=== PATIENT | male | born 1960 | race Caucasian/White ===

== ENCOUNTER 2024-07-08 07:38 | Emergency (ER) | payer OTHER, SELFPAY ==
[2024-07-08 07:43] VITALS: BP 167/97; PULSE 93; TEMP 36.8; O2SAT 98; BMI 29.1
--- NOTE | 2024-07-08 08:00 | XR_ITS ---
The [address] [address] Patient Name: JEFFREY HILLMAN MRN: [id number] date: 1960 Sex: M Assigned Patient Location: ER Current Patient Location: ER Accession/Order Number: [id number] Exam Date: 07/08/2024 07:54 Report Date: 07/08/2024 08:35 At the request of: PAVAN ALVAREZ Procedure: XR humerus RT EXAM: XR humerus RT, XR shoulder RT min 2V HISTORY: fall c/o pain COMPARISON: None. XR/XR humerus RT IMPRESSION: 1. There is a mildly displaced fracture involving the caudal aspect of the body of the scapula. 2. No acute joint malalignment. 3. Mild acromioclavicular and glenohumeral joint osteoarthritis. Electronically authenticated by: MAGNUS DORANTES Date: 07/08/2024 08:35
--- NOTE | 2024-07-08 08:00 | XR_ITS ---
The [address] [address] Patient Name: JEFFREY HILLMAN MRN: [id number] date: 1960 Sex: M Assigned Patient Location: ER Current Patient Location: ER Accession/Order Number: [id number] Exam Date: 07/08/2024 07:54 Report Date: 07/08/2024 08:35 At the request of: PAVAN ALVAREZ Procedure: XR shoulder RT min 2V EXAM: XR humerus RT, XR shoulder RT min 2V HISTORY: fall c/o pain COMPARISON: None. XR/XR shoulder RT min 2V IMPRESSION: 1. There is a mildly displaced fracture involving the caudal aspect of the body of the scapula. 2. No acute joint malalignment. 3. Mild acromioclavicular and glenohumeral joint osteoarthritis. Electronically authenticated by: MAGNUS DORANTES Date: 07/08/2024 08:35
--- NOTE | 2024-07-08 08:29 | CT_ITS ---
The [address] [address] Patient Name: JEFFREY HILLMAN MRN: [id number] date: 1960 Sex: M Assigned Patient Location: ER Current Patient Location: ER Accession/Order Number: [id number] Exam Date: 07/08/2024 08:38 Report Date: 07/08/2024 09:18 At the request of: PAVAN ALVAREZ Procedure: CT chest wo con EXAMINATION: CT chest wo con HISTORY: trauma COMPARISON: No relevant comparison available. TECHNIQUE: Multi-planar CT images were created with IV contrast. Axial, Coronal, and Sagittal images. Dose reduction techniques were achieved by using automated exposure control and/or adjustment of mA and/or kV according to patient size and/or use of iterative reconstruction technique. FINDINGS: LUNGS: 1.5 cm area of groundglass opacity in the right upper lobe possibly a lung contusion. Mild biapical paraseptal emphysema. A few scattered punctate pulmonary nodules, nonspecific PLEURA: No mass, effusion, or pneumothorax. VASCULATURE: No abnormality. HIGINIO: No mass or adenopathy. MEDIASTINUM: No mass or adenopathy. Scattered thyroid nodules CARDIAC: No enlargement or pericardial effusion Coronary arteries: Mild calcifications AORTA: No aortic aneurysm. Mild calcific atherosclerosis CHEST WALL: No mass or axillary adenopathy. BONES: Complex right scapular fracture LIMITED ABDOMEN: Multiple hepatic hypodensities too small to fully characterize. OTHER: Negative. CT/CT chest wo con IMPRESSION: Complex acute right scapular fracture 1.5 cm groundglass opacity in the right upper lobe, possibly a lung contusion. Electronically authenticated by: COLLIN PARK Date: 07/08/2024 09:18
--- NOTE | 2024-07-08 08:29 | CT_ITS ---
The [address] [address] Patient Name: JEFFREY HILLMAN MRN: [id number] date: 1960 Sex: M Assigned Patient Location: ER Current Patient Location: ER Accession/Order Number: [id number] Exam Date: 07/08/2024 08:38 Report Date: 07/08/2024 08:57 At the request of: PAVAN ALVAREZ Procedure: CT cervical spine wo con EXAM: CT cervical spine wo con HISTORY: Fall with back and right shoulder pain, trauma COMPARISON: None. TECHNIQUE: Axial noncontrast CT imaging of the cervical spine was performed with coronal and sagittal reformats. FINDINGS: Alignment: No substantial subluxation. Vertebrae: Vertebral body heights are maintained. No fracture. Craniocervical junction: No focal abnormality. Degenerative changes: Moderate degenerative change of the cervical spine with multilevel moderate disc height loss, sclerotic endplate change with anterior and posterior osteophytic spurring as well as multilevel moderate to advanced uncovertebral and facet arthropathy. Posterior disc osteophyte complexes are present at multiple levels most prominent at C5-C6 with mild canal stenosis. There is advanced left foraminal stenosis at C4-C5 through C6-C7 secondary to eccentric left uncovertebral arthropathy at these levels. No overt substantial canal stenosis. Additional Comments: Paraseptal emphysematous change involving the visualized lung apices. Multinodular thyroid. The largest visible nodule measures approximately 9 mm involving the right thyroid. CT/CT cervical spine wo con IMPRESSION: 1. No acute fracture or malalignment of the cervical spine. 2. Moderate degenerative change of the cervical spine described above. Electronically authenticated by: RASHAD CORNEJO Date: 07/08/2024 08:57
--- NOTE | 2024-07-08 09:31 | ED.GENADUL1 ---
HPI HPI - General Adult General Chief complaint: Extremity Injury, Upper Stated complaint: FALL, BACK AND SHOULDAR PAIN Time Seen by Provider: 07/08/24 07:44 Mode of arrival: walk-in History of Present Illness HPI narrative: Patient presents to ED after a fall. Patient states that 630 this morning he was walking outside and slipped on his steps and landed on his back on the right side. He had pain but got up and continue to do some stuff out in the driveway like salt the steps and things like that. He then came back inside and became diaphoretic and near syncopal. He was having a hard time moving his shoulder and lifting the right arm because of shoulder pain. He complains of some pain into the proximal humerus area and shoulder and slightly in the back below the scapula. He also complains of a little bit of pain in the right cervical paraspinal muscles. He did not hit his head he did not lose consciousness. No nausea vomiting no confusion no neurological deficit. He ambulated into ED. Related Data Previous Rx's ?Medication ?Instructions ?Recorded oxycodone-acetaminophen 5 mg-325 1 tab PO Q6H PRN pain #14 tabs 07/08/24 mg tablet (Percocet) Allergies Allergy/AdvReac Type Severity Reaction Status Date / Time No Known Drug Allergies Allergy Verified 07/08/24 07:43 Opioid HPI Opioid Management Most Recent Opioid Data: Last Pain Scale 5 07/08/24 07:43 07/08/24 Last ED Pain Assessment 07/08/24 07:43 Review of Systems ROS Status of ROS 10 or more systems reviewed and unremarkable except as noted in history and below PFSH PFSH Social History Little interest or pleasure in doing things: not at all Feeling down, depressed, or hopeless: not at all Exam Narrative Exam Narrative: Time Seen: [] Vital Signs: [Per nurse's notes.] General: [Alert] Skin: [Warm, dry, no rash.] Head: [Normocephalic, atraumatic.] Neck: [Supple, trachea midline.] No midline tenderness, mild tenderness to the right paraspinal cervical muscles. Eye: [Pupils are equal, round and reactive to light, extraocular movements are intact, normal conjunctiva.] Ears, nose, mouth and throat: oral mucosa moist. Cardiovascular: [Regular rate and rhythm, no murmur.] Respiratory: [Lungs are clear to auscultation, respirations are non-labored, breath sounds are equal.] Chest wall: [No tenderness, no deformity.] Gastrointestinal: [Soft, nontender, non distended, normal bowel sounds.] MSK: Decreased range of motion at the right shoulder due to pain. Tenderness to palpation around the scapular region. Tenderness to palpation in the shoulder and proximal humerus. 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 Lymphatics: [No lymphadenopathy.] Psychiatric: [Cooperative, appropriate mood & affect.] Neurological: [Alert and oriented to person, place, time, and situation, no focal neurological deficit observed.] Constitutional Vital Signs, click to edit/add: Last Vital Signs Temp 98.2 F 07/08/24 07:43 Pulse 93 H 07/08/24 07:43 Resp 18 07/08/24 07:43 BP 167/97 H 07/08/24 07:43 Pulse Ox 98 07/08/24 07:43 Course Vital Signs Vital signs: Vital Signs Temperature 98.2 F 07/08/24 07:43 Pulse Rate 93 H 07/08/24 07:43 Respiratory Rate 18 07/08/24 07:43 Blood Pressure 167/97 H 07/08/24 07:43 Pulse Oximetry 98 07/08/24 07:43 Temperature 98.2 F 07/08/24 07:43 Pulse Rate 93 H 07/08/24 07:43 Respiratory Rate 18 07/08/24 07:43 Blood Pressure 167/97 H 07/08/24 07:43 Pulse Oximetry 98 07/08/24 07:43 Medical Decision Making MDM Narrative Medical decision making narrative: Shoulder and humerus x-ray ordered by nurse, after my evaluation I added on CT cervical spine and CT chest due to pain with breathing and neck pain. X-ray and CT show a scapular fracture.. I spoke to Dr. Palma and he states as long as his respiratory and pulmonary status are normal then he can most likely be followed up outpatient. I got him an appointment with Dr. Palma at 1130 on Friday. The patient has no shortness of breath no respiratory complaints. No hypoxia. He was given strict instructions to return to the emergency room if any of those things are occurring. He was placed in a sling and given pain medication for home. Follow-up with Dr. Palma on Friday otherwise return to ED if worsening symptoms or any further concerns. Patient and family are comfortable with care plan. Differential Diagnosis Differential Diagnosis: Fracture sprain strain contusion Imaging Data Chest x-ray: Radiologist's impression: ITS Impressions Humerus X-Ray 07/08/24 08:00 IMPRESSION: 1. There is a mildly displaced fracture involving the caudal aspect of the body of the scapula. 2. No acute joint malalignment. 3. Mild acromioclavicular and glenohumeral joint osteoarthritis. Electronically authenticated by: MAGNUS DORANTES Date: 07/08/2024 08:35 Shoulder X-Ray 07/08/24 08:00 IMPRESSION: 1. There is a mildly displaced fracture involving the caudal aspect of the body of the scapula. 2. No acute joint malalignment. 3. Mild acromioclavicular and glenohumeral joint osteoarthritis. Electronically authenticated by: MAGNUS DORANTES Date: 07/08/2024 08:[address] 07/08/24 08:29 IMPRESSION: 1. No acute fracture or malalignment of the cervical spine. 2. Moderate degenerative change of the cervical spine described above. Electronically authenticated by: RASHAD CORNEJO Date: 07/08/2024 08:[address] 07/08/24 08:29 IMPRESSION: Complex acute right scapular fracture 1.5 cm groundglass opacity in the right upper lobe, possibly a lung contusion. Electronically authenticated by: COLLIN PARK Date: 07/08/2024 09:18 Discharge Plan Discharge Chief Complaint: Extremity Injury, Upper Clinical Impression: Closed right scapular fracture Patient Disposition: Home, Self-Care Time of Disposition Decision: 09:49 Condition: Good Mode of Transportation: Private Vehicle Prescriptions / Home Meds: New oxycodone-acetaminophen [Percocet] 5-325 mg tablet 1 tab PO Q6H PRN (Reason: pain) Qty: 14 0RF Print Language: Irish Instructions: Scapular Fracture (ED) Referrals: Uvaldo Yung MD [Primary Care Provider] - 1 week Basilio Palma MD [Physician] - 07/12/24 11:30 am
== END 2024-07-08 10:00 | disposition home or self-care (01) ==
PROVIDERS: Emergency Provider Emergency Medicine; PCP Family Medicine
DX: S42.111A Displaced fracture of body of scapula, right shoulder, initial encounter for closed fracture (principal); W10.8XXA Fall (on) (from) other stairs and steps, initial encounter
CPT/HCPCS: 71250; 72125; 73030; 73060; 99284

== ENCOUNTER 2024-08-02 07:36 | Outpatient (OUT) | payer OTHER, SELFPAY ==
--- NOTE | 2024-08-02 | XR_ITS ---
The [address] [address] Patient Name: JEFFREY HILLMAN MRN: [id number] date: 1960 Sex: M Assigned Patient Location: Current Patient Location: Accession/Order Number: [id number] Exam Date: 08/02/2024 16:40 Report Date: 08/02/2024 17:11 At the request of: COSTA MCCANN MD Procedure: XR scapula RT RIGHT SCAPULA - 2 views CLINICAL HISTORY: Follow-up scapular fracture. COMPARISON: Right shoulder 07/08/2024 FINDINGS: Interval sclerosis along the patient's scapular fracture suggestive of healing response. No acute process is seen. XR/XR scapula RT IMPRESSION: HEALING SCAPULAR FRACTURE. Impression dictated by: Kaleb Andre Jr. DDeannaODeanna08/02/2024 5:11 PM Dictation Location: [place] [address] Electronically authenticated by: [id number] Y Date: 08/02/2024 17:11
== END 2024-08-02 07:37 | disposition home or self-care (01) ==
LOC: EC 07:36
PROVIDERS: PCP Family Medicine; Visit Provider Orthopaedic Surgery
DX: S42.191D Fracture of other part of scapula, right shoulder, subsequent encounter for fracture with routine healing (principal)
CPT/HCPCS: 73010

== ENCOUNTER 2024-08-30 07:36 | Outpatient (OUT) | payer OTHER, SELFPAY ==
--- NOTE | 2024-08-30 07:37 | XR_ITS ---
The [address] [address] Patient Name: JEFFREY HILLMAN MRN: [id number] date: 1960 Sex: M Assigned Patient Location: Current Patient Location: Accession/Order Number: [id number] Exam Date: 08/30/2024 08:05 Report Date: 08/30/2024 08:08 At the request of: COSTA MCCANN MD Procedure: XR scapula RT RIGHT SCAPULA - 2 views. CLINICAL HISTORY: Follow-up scapular fracture COMPARISON: 08/02/2024 AP and Y views were obtained. A stable fracture is seen at the body of the scapula. No prominent callus formation is seen. There is no new fracture or dislocation.. No soft tissue abnormalities are seen. XR/XR scapula RT IMPRESSION: STABLE SCAPULAR FRACTURE. Impression dictated by: Kaitlin Pardo M.D.08/30/2024 8:08 AM Dictation Location: [place] [address] Electronically authenticated by: [id number] Y Date: 08/30/2024 08:08
--- OUTSIDE RECORDS SUMMARY | 2024-08-30 07:47 | XMS_ITS | CCD ---
Author Organization [facility] Care Team Providers Care Keypunch Operator Name Role Phone DR JEFFREY KENYON Admitting Unavailable DR JEFFREY KENYON Attending Unavailable DR JEFFREY KENYON Primary Care Unavailable DR JEFFREY KENYON Consulting Unavailable Unavailable Primary Care Provider Unavailabl e Problems Problem Classification Problem Date Documented Da te Episodic/Chronic Nutritional deficiencies (1 source) Vitamin D deficiency, unspecified; Translations: [VITAMIN D DEFICIENCY UNSPECIFIED] Onset: 01-09-2022 Chronic Other screening for suspected conditions (not mental disorders or infectious disease) (1 source) Encounter for screening for malignant neoplasm of prostate; Translations: [ENC SCREEN MALIG NEOPLASM PROSTATE] Onset: 01-09-2022 Episodic Results Test Name Value Interpretation Reference Range Facility XR Scapula - right Viewson 0 08-02-[address] [address] XRay Report Signed Patient: JEFFREY BAXTER MR#: [id number] : 1960 Acct:[id number] Age/Sex: 64 / M ADM Date: 08/02/24 Loc: EC Attending Dr: Basilio Mccann M.D. Ordering Physician: Basilio Mccann M.D. Date of Service: 08/02/24 Procedure(s): XR scapula RT Accession Number(s): [id number] cc: Basilio Mccann M.D.; Jeffrey Kenyon M.D. [address] [address] Patient Name: JEFFREY BAXTER MRN: [id number] date: 1960 Sex: M Assigned Patient Location: EC Current Patient Location: EC Accession/Order Number: [id number] Exam Date: 08/02/2024 16:40 Report Date: 08/02/2024 17:11 At the request of: BASILIO MCCANN MD Procedure: XR scapula RT RIGHT SCAPULA - 2 views CLINICAL HISTORY: Follow-up scapular fracture. COMPARISON: Right shoulder 07/08/2024 FINDINGS: Interval sclerosis along the patient's scapular fracture suggestive of healing response. No acute process is seen. XR/XR scapula RT IMPRESSION: HEALING SCAPULAR FRACTURE. Impression dictated by: Kaleb Andre Jr., D.O.08/02/2024 5:11 PM Dictation Location: [place] [address] Electronically authenticated by: [id number] Y Date: 08/02/2024 17:11 Dictated By: Kaleb Andre M.D. Signed By: 08/02/241712 DD/ 10 TD/TT: Production Operations Inspector: [facility] Radiology, Radiologist, MD - 08/03/2024 [place] [address] XRay Report Signed Patient: JEFFREY BAXTER MR#: [id number] : 1960 Acct:[id number] Age/Sex: 64 / M ADM Date: 08/02/24 Loc: Attending Dr: Basilio Mccann M.D. Ordering Physician: Basilio Mccann M.D. Date of Service: 08/02/24 Procedure(s): XR scapula RT Accession Number(s): [id number] cc: Basilio Mccann M.D.; Jeffrey Kenyon M.D. [address] [place] [address] Patient Name: JEFFREY BAXTER MRN: [facility]:[id number] date: 1960 Sex: M Assigned Patient Location: Current Patient Location: Accession/Order Number: [id number] Exam Date: 08/02/2024 16:40 Report Date: 08/02/2024 17:11 At the request of: BASILIO MCCANN MD Procedure: XR scapula RT RIGHT SCAPULA - 2 views CLINICAL HISTORY: Follow-up scapular fracture. COMPARISON: Right shoulder 07/08/2024 FINDINGS: Interval sclerosis along the patient's scapular fracture suggestive of healing response. No acute process is seen. XR/XR scapula RT IMPRESSION: HEALING SCAPULAR FRACTURE. Impression dictated by: Kaleb Andre Jr., D.O.08/02/2024 5:11 PM Dictation Location: [place] [address] Electronically authenticated by: [id number] Y Date: 08/02/2024 17:11 Dictated By: Kaleb Andre M.D. Signed By: 08/02/241712 DD/ 10 TD/TT: Production Operations Inspector: [facility] [employer] Radiology Study observation (narrative) [facility] [employer] XR Scapula - right ViewsOrde red By: Radiologist Radiology on 08-02-2024 [employer] Work Phone: VIT D 25-OH [employer] 2021 Vitamin D, 25-Hydroxy 46.0 ng/mL Normal 30.0-100.0 [facility] Comment on above: Result Comment: Alysia min D deficiency has been defined by the Mears of Medicine and an Endocrine Society practice guideline as a level of serum 25-OH vitamin D less than 20 ng/mL (1,2). The Endocrine Society went on to further define vitamin D insufficiency as a level between 21 and 29 ng/mL (2). 1. IOM ([place]ears of Medicine). 2010. Dietary reference intakes for calcium and D. [place]: The National Academies Press. 2. Valeria MF, Shanae NC, Randy GILBERT, et al. Evaluation, treatment, and prevention of vitamin D deficiency: an Endocrine Society clinical practice guideline. JCEM. 2010; 96(7):1911-30. Performed By: #### V ITADLC #### [facility] [address] [place] [address] [address] Uday Snowden CBC AUTO DIFFon 01-07-2022 BASO # 0.1 103/ul Normal 0.0-0.1 [facility] Comment on above: Performed By: #### C BC #### [facility] [address] [place], [place] [address] Dr. Uday Snowden Basophils/100 WBC (Bld) 0.9 % Normal 0.2-2.0 [facility] Comment on above: Performed By: #### C BC #### [facility] [address] [place] [address] Dr. Uday Snowden EO # 0.5 103/ul Normal 0.0-0.7 [facility] Comment on above: Performed By: #### C BC #### [facility] [address] [place] [address] Dr. Uday Snowden Eosinophils/100 WBC (Bld) 6.3 % Normal 0.9-7.0 [facility] Comment on above: Performed By: #### C BC #### [facility] [address] [place] [address] Dr. Uday Snowden Erythrocyte distribution width (RBC) [Ratio] 13.4 % Normal 11.0-15.0 [facility] Comment on above: Performed By: #### C BC #### [facility] [address] [place] [address] Dr. Uday Snowden Hematocrit (Bld) [Volume fraction] 40.4 % Critically low 42.0-54.0 [facility] Comment on above: Performed By: #### C BC #### [facility] [address] [place] [address] Dr. Uday Snowden Hemoglobin (Bld) [Mass/Vol] 14.0 g/dL Normal 14.0-18.0 [facility] Comment on above: Performed By: #### C BC #### [facility] [address] [place] [address] Dr. Uday Snowden IG # 0.04 10e3/ul Critically high 0.00-0.03 [facility] Comment on above: Performed By: #### C BC #### [facility] [address] [place] [address] Dr. Uday Snowden IG % 0.5 % Normal 0.0-0.5 [facility] Comment on above: Performed By: #### C BC #### [facility] [address] [place] [address] Dr. Uday Snowden LYMPH # 1.9 103/ul Normal 1.2-3.8 [facility] Comment on above: Performed By: #### C BC #### [facility] [address] [place] [address] Dr. Uday Snowden Lymphocytes/100 WBC (Bld) 26.0 % Normal 20.5-60.0 [facility] Comment on above: Performed By: #### C BC #### [facility] [address] [place] [address] Dr. Uday Snowden MANUAL DIFF REQ NO Normal [facility] Comment on above: Performed By: #### C BC #### [facility] [address] [place] [address] Dr. Uday Snowden MCH (RBC) [Entitic mass] 29.0 pg Normal 25.9-34.0 [facility] Comment on above: Performed By: #### C BC #### [facility] [address] [place] [address] Dr. Uday Snowden MCHC (RBC) [Mass/Vol] 34.7 g/dL Normal 29.9-35.2 [facility] Comment on above: Performed By: #### C BC #### [facility] [address] [place] [address] Dr. Uday Snowden MCV (RBC) [Entitic vol] 83.6 fL Normal 80.0-94.0 [facility] Comment on above: Performed By: #### C BC #### [facility] [address] [place] [address] Dr. Uday Snowden MONO # 0.5 103/ul Normal 0.3-0.8 [facility] Comment on above: Performed By: #### C BC #### [facility] [address] [place] [address] Dr. Uday Snowden Monocytes/100 WBC (Bld) 6.9 % Normal 1.7-12.0 [facility] Comment on above: Performed By: #### C BC #### [facility] [address] [place] [address] Dr. Uday Snowden NEUT # 4.4 103/ul Normal 1.4-6.5 [facility] Comment on above: Performed By: #### C BC #### [facility] [address] [place] [address] [address] Uday Snowden Neutrophils/100 WBC (Bld) 59.4 % Normal 43.0-75.0 [facility] Comment on above: Performed By: #### C BC #### [facility] [address] [place] [address] [address] Uday Snowden Platelet mean volume (Bld) [Entitic vol] 9.9 fL Normal 9.5-13.5 [facility] Comment on above: Performed By: #### C BC #### [facility] [address] [place] [address] Dr. Uday Snowden PLT 267 103/ul Normal 150-450 [facility] Comment on above: Performed By: #### C BC #### [facility] [address] [place] [address] Dr. Uday Snowden RBC 4.83 106/ul Normal 4.70-6.10 [facility] Comment on above: Performed By: #### C BC #### [facility] [address] [place] [address] Dr. Uday Snowden WBC 7.4 103/ul Normal 4.0-11.0 [facility] Comment on above: Performed By: #### C BC #### [facility] [address] [place] [address] Dr. Uday Snowden GLYCOHEMOGLOBIN A1Con 2021 ADA RECOMMENDATION SEE BELOW Normal [facility] Comment on above: Result Comment: ADA RECOMMENDED LIMIT 4.0 - 6.0 ADA THERAPEUTIC TARGET < 7.0 ACTION SUGGESTED > 7.0 Performed By: #### A 1C #### [facility] [address] [place] [address] Dr. Uday Snowden Glucose [Mass/Vol] 103 mg/dL Normal [facility] Comment on above: Performed By: #### A 1C #### [facility] [address] [place] [address] Dr. Uday Snowden HbA1c (Bld) [Mass fraction] 5.2 % Normal 4.5-6.2 [facility] Comment on above: Performed By: #### A 1C #### [facility] [address] [place] [address] [address] Uday Snowden LIPID PROFILEon 01-07-2022 CHOL-HDL RATIO NORM SEE BELOW Normal [facility] Comment on above: Result Comment: 3.3 - 4.4 LOW RISK 4.4 - 7.1 AVERAGE RISK 7.1 - 11.0 MODERATE RISK >11.0 HIGH RISK Performed By: #### B MP, TSH, LIPID, LIVER #### [facility] [address] [place] [address] [address] Uday Snowden Cholesterol [Mass/Vol] 219 mg/dL Critically high <=200 [facility] Comment on above: Performed By: #### B MP, TSH, LIPID, LIVER #### [facility] [address] [place] [address] [address] Uday Snowden Cholesterol in HDL [Mass/Vol] 36 mg/dL Critically low 40-60 [facility] Comment on above: Performed By: #### B MP, TSH, LIPID, LIVER #### [facility] [address] [place] [address] [address] Uday Snowden Cholesterol in LDL [Mass/Vol] 136.8 mg/dL Normal [facility] Comment on above: Performed By: #### B MP, TSH, LIPID, LIVER #### [facility] [address] [place] [address] [address] Uday Snowden Cholesterol.total/Cho lesterol in HDL [Mass ratio] 6.1 {ratio} Normal [facility] Comment on above: Performed By: #### B MP, TSH, LIPID, LIVER #### [facility] [address] [place] [address] [address] Uday Snowden HDL NORMAL > or = 60 mg/dl - LOW CARDIOVASCULAR RISK <40 mg/dl - HIGH CARDIOVASCULAR RISK Normal [facility] Comment on above: Performed By: #### B MP, TSH, LIPID, LIVER #### [facility] [address] [place] [address] [address] Uday Snowden LDL CALC NORMAL SEE BELOW Normal [facility] Comment on above: Result Comment: <100 mg/dl OPTIMAL 100 - 129 mg/dl NEAR OR ABOVE OPTIMAL 130 - 159 mg/dl BORDERLINE HIGH 160 - 189 mg/dl HIGH >190 mg/dl VERY HIGH Performed By: #### B MP, TSH, LIPID, LIVER #### [facility] [address] [place] [address] Dr. Uday Snowden Triglyceride [Mass/Vol] 231 mg/dL Critically high <=150 [facility] Comment on above: Performed By: #### B MP, TSH, LIPID, LIVER #### [facility] [address] [place] [address] Dr. Uday Snowden VLDL CALC 46.2 mg/dL Normal [facility] Comment on above: Performed By: #### B MP, TSH, LIPID, LIVER #### [facility] [address] [place] [address] Dr. Uday Snowden LIVER PROFILEon 01-07-2022 Albumin [Mass/Vol] 3.8 g/dL Normal 3.4-5.0 [facility] Comment on above: Performed By: #### B MP, TSH, LIPID, LIVER #### [facility] [address] [place] [address] Dr. Uday Snowden Albumin/Globulin [Mass ratio] 1.0 {ratio} Normal [facility] Comment on above: Performed By: #### B MP, TSH, LIPID, LIVER #### [facility] [address] [place] [address] Dr. Uday Snowden ALP [Catalytic activity/Vol] 65 U/L Normal 46-116 [facility] Comment on above: Performed By: #### B MP, TSH, LIPID, LIVER #### [facility] [address] [place] [address] Dr. Uday Snowden ALT [Catalytic activity/Vol] 20 U/L Normal 16-63 [facility] Comment on above: Performed By: #### B MP, TSH, LIPID, LIVER #### [facility] [address] [place] [address] Dr. Uday Snowden AST [Catalytic activity/Vol] 19 U/L Normal 15-37 [facility] Comment on above: Performed By: #### B MP, TSH, LIPID, LIVER #### [facility] [address] [place] [address] Dr. Uday Snowden BILI, CONJUGATED 0.1 mg/dL Normal 0.0-0.2 [facility] Comment on above: Performed By: #### B MP, TSH, LIPID, LIVER #### [facility] [address] [place] [address] Dr. Uday Snowden Bilirubin [Mass/Vol] 0.5 mg/dL Normal 0.2-1.0 [facility] Comment on above: Performed By: #### B MP, TSH, LIPID, LIVER #### [facility] [address] [place] [address] Dr. Uday Snowden Globulin (S) [Mass/Vol] 3.7 g/dL Normal [facility] Comment on above: Performed By: #### B MP, TSH, LIPID, LIVER #### [facility] [address] [place] [address] Dr. Uday Snowden Protein [Mass/Vol] 7.5 g/dL Normal 6.4-8.2 [facility] Comment on above: Performed By: #### B MP, TSH, LIPID, LIVER #### [facility] [address] [place] [address] Dr. Uday Snowden PROF CHEM 8 (BAS METB)on Anion gap [Moles/Vol] 12.9 mmol/L Normal [facility] Comment on above: Performed By: #### B MP, TSH, LIPID, LIVER #### [facility] [address] [place] [address] Dr. Uday Snowden Calcium [Mass/Vol] 9.1 mg/dL Normal 8.5-10.1 [facility] Comment on above: Performed By: #### B MP, TSH, LIPID, LIVER #### [facility] [address] [place] [address] Dr. Uday Snowden Chloride [Moles/Vol] 101 mmol/L Normal 98-107 [facility] Comment on above: Performed By: #### B MP, TSH, LIPID, LIVER #### [facility] [address] [place] [address] [address] Uday Snowden CO2 [Moles/Vol] 27.2 mmol/L Normal 21.0-32.0 [facility] Comment on above: Performed By: #### B MP, TSH, LIPID, LIVER #### [facility] [address] [place] [address] [address] Uday Snowden Creatinine [Mass/Vol] 1.22 mg/dL Normal 0.70-1.30 [facility] Comment on above: Performed By: #### B MP, TSH, LIPID, LIVER #### [facility] [address] [place] [address] [address] Uday Snowden EGFR-AF GUYANESE >60 Normal >=60 [facility] Comment on above: Performed By: #### B MP, TSH, LIPID, LIVER #### [facility] [address] [place] [address] Dr. Uday Snowden EGFR-NON AF GUYANESE 60 mL/min/1.73m2 Normal >=60 [facility] Comment on above: Performed By: #### B MP, TSH, LIPID, LIVER #### [facility] [address] [place] [address] [address] Uday Snowden Glucose [Mass/Vol] 98 mg/dL Normal 74-106 [facility] Comment on above: Performed By: #### B MP, TSH, LIPID, LIVER #### [facility] [address] [place] [address] Dr. Uday Snowden Potassium [Moles/Vol] 4.1 mmol/L Normal 3.5-5.1 [facility] Comment on above: Performed By: #### B MP, TSH, LIPID, LIVER #### [facility] [address] [place] [address] Dr. Uday Snowden Sodium [Moles/Vol] 137 mmol/L Normal 136-145 [facility] Comment on above: Performed By: #### B MP, TSH, LIPID, LIVER #### [facility] [address] [place] [address] Dr. Uday Snowden Urea nitrogen [Mass/Vol] 20.0 mg/dL Critically high 7.0-18.0 [facility] Comment on above: Performed By: #### B MP, TSH, LIPID, LIVER #### [facility] [address] [place] [address] [address] Uday Snowden Urea nitrogen/Creatinine [Mass ratio] 16.4 mg/mg Normal [facility] Comment on above: Performed By: #### B MP, TSH, LIPID, LIVER #### [facility] [address] [place] [address] [address] Uday Snowden TSHon 01-07-2022 TSH 1.234 uIU/mL Normal 0.358-3.740 [facility] Comment on above: Performed By: #### B MP, TSH, LIPID, LIVER #### [facility] [address] [place] [address] [address] Uday Snowden Ambulatory Clinical Summaryo n 03-28-2020 Ambulatory Clinical Summary {[id number] Normal [facility] General Surgery Office/Clini c Noteon 03-28-2020 General Surgery Office/Clinic Note Chief Complaint post operative follow up HPI Staff 7 week post operative follow up post colostomy reversal. Minimal intermittent discomfort. No use of pain medication. Bowels moving well. Taking stool softener once per day. Slowly introducing new foods, tolerating well. Denies nausea or vomiting. Intermittent use of abdominal binder. Would like to return to work on 04/07. History of Present Illness 7 weeks s/p colostomy reversal, doing well, no pain, doing regular activities now, wears binder prn; eating normal diet, normal bms, no N/V; formed bms. Review of Systems ROS - Provider Constitutional: no fever, no sweats, no weight loss. Eyes: no glasses, no blurred vision, no visual loss. ENMT: no dentures, no hoarseness, no swallowing difficulties, no hearing loss, no ear infection(s), no nose bleeds. Cardiovascular: normal blood pressure, no chest pain, regular heartbeat, no heart murmur. Respiratory: no shortness of breath, no cough, no asthma, no wheezing. Gastrointestinal: no nausea, no vomiting, no diarrhea, no constipation, no blood in stool, no change in bowel habits, no abdominal pain, no hepatitis. Genitourinary: no kidney stones, no urine infection, no dysuria. Musculoskeletal: mild pain, no weakness. Skin: no changing moles, no rash, no skin lumps. Neurologic: no seizures, no epilepsy, no headache. Psychiatric: no emotional or psychiatric problem. Heme/Lymph: no bleeding problems, no anemia, no blood clots, no transfusions. Allergy/Immunologic : no swollen lymph nodes/glands, no IV drug abuse. Other: Additional ROS info: Except as noted in the above Review of Systems and in the History of Present Illness, all other systems have been reviewed and are negative or noncontributory. Physical Exam Vitals & Measurements T: 36.7 ?C (Tympanic) abd: soft, nontender, nondistended, normal bs; incisions well-healed; no masses or hernias Assessment/Plan 1. History of colostomy reversal (Z98.890: Other specified postprocedural states) doing well; can return to work 04/07/20 without restrictions; wear binder or belt with lifting/straining; call with problems/questions. Follow-up With When Contact Information AIMEE FIGUEROA, Lj Salcido Only if needed [address] [place] [address]- Additional Instructions: Problem List/Past Medical History Ongoing BMI 26.0-26.9,adult Colostomy present Diastasis recti History of colostomy reversal History of diverticulitis of colon Hypertension Perforated sigmoid colon Ventral incisional hernia Historical Sigmoid diverticulitis Procedure/Surgical History Take-down of colostomy (02/09/2020), Colostomy of sigmoid (08/06/2019), Exploratory laparotomy (08/06/2019). Medications hydrochlorothiazide 25 mg oral tablet Pantoprazole [address] Tab, 40 mg= 1 tab(s), Oral, Daily Stool Softener with Laxative, See Instructions Vitamin D3 2000 intl units, 1 tab, Oral, Daily Allergies No Known Allergies No Known Medication Allergies Social History Alcohol Current, 1-2 times per month, 08/17/2019 Substance Abuse - Denies Substance Abuse, 08/17/2019 Tobacco Former smoker, quit more than 30 days ago Tobacco Use:. Never Smokeless Tobacco Use:. Cigarettes, Stopped age 55 Years., 02/18/2020 Family History Primary malignant neoplasm of female breast: Mother and Sister. Primary malignant neoplasm of lung: Brother. Immunizations Vaccine Date Status influenza virus vaccine, inactivated 03/11/2019 Recorded Normal [facility] Comment on above: Result Comment: Elec tronically Signed By: AIMEE FIGUEROA, Lj Galindo.ju\Date and Time Signed: 03/28/20 13:25 EDT Provider Letter FTon 03-28 Provider Letter [facility] [place] March 28, 2020 JEFFREY BAXTER [address] [place] [id number] JEFFREY BAXTER 1960 To Whom It May Concern, The above named person may return to work without restrictions on 04/07/2020. Sincerely, Dr. Lj Peres MD General Surgery [facility] Auth for Release of Medical Recordson 03-20-2020 Auth for Release of Medical Records [id number] E3#1.00CD:127 Normal [facility] Ambulatory Clinical Summaryo n 03-14-2020 Ambulatory Clinical Summary {[id number] Normal [facility] General Surgery Office/Clini c Noteon 03-14-2020 General Surgery Office/Clinic Note Chief Complaint post operative follow up HPI Staff 4 week post operative follow up post colostomy reversal. Doing well. Denies pain. No use of pain medication. Bowels moving well, stool is soft but formed. Taking stool softener at bedtime. Appetite good. Denies nausea or vomiting. Afebrile. Wearing ABD binder. Sutures and sheeba remain intact. Incisions sites without drainage. History of Present Illness almost 5 weeks s/p colostomy reversal, doing well, formed bms, no N/V; no pain or drainage from incisions, still wearing abdominal binder. Review of Systems ROS - Provider Constitutional: no fever, no sweats, no weight loss. Eyes: no glasses, no blurred vision, no visual loss. ENMT: no dentures, no hoarseness, no swallowing difficulties, no hearing loss, no ear infection(s), no nose bleeds. Cardiovascular: normal blood pressure, no chest pain, regular heartbeat, no heart murmur. Respiratory: no shortness of breath, no cough, no asthma, no wheezing. Gastrointestinal: no nausea, no vomiting, no diarrhea, no constipation, no blood in stool, no change in bowel habits, no abdominal pain, no hepatitis. Genitourinary: no kidney stones, no urine infection, no dysuria. Musculoskeletal: no pain, no weakness. Skin: no changing moles, no rash, no skin lumps. Neurologic: no seizures, no epilepsy, no headache. Psychiatric: no emotional or psychiatric problem. Heme/Lymph: no bleeding problems, no anemia, no blood clots, no transfusions. Allergy/Immunologic : no swollen lymph nodes/glands, no IV drug abuse. Other: Additional ROS info: Except as noted in the above Review of Systems and in the History of Present Illness, all other systems have been reviewed and are negative or noncontributory. Physical Exam Vitals & Measurements T: 36.8 ?C (Tympanic) abd: soft, nontender nondistended, normal bs, incision without erythema or drainage, no ecchymoses Assessment/Plan 1. History of colostomy reversal (Z98.890: Other specified postprocedural states) doing well, sheeba and sutures removed; continue to wear abdominal binder; follow up in 2 weeks, call sooner if problems/questions. 2. History of diverticulitis of colon (Z87.19: Personal history of other diseases of the digestive system) see # 1 Follow-up No qualifying data available Problem List/Past Medical History Ongoing BMI 26.0-26.9,adult Colostomy present Diastasis recti History of colostomy reversal History of diverticulitis of colon Hypertension Perforated sigmoid colon Ventral incisional hernia Historical Sigmoid diverticulitis Procedure/Surgical History Take-down of colostomy (02/09/2020), Colostomy of sigmoid (08/06/2019), Exploratory laparotomy (08/06/2019). Medications hydrochlorothiazide 25 mg oral tablet Pantoprazole [address] Tab, 40 mg= 1 tab(s), Oral, Daily Stool Softener with Laxative, See Instructions Vitamin D3 2000 intl units, 1 tab, Oral, Daily Allergies No Known Allergies No Known Medication Allergies Social History Alcohol Current, 1-2 times per month, 08/17/2019 Substance Abuse - Denies Substance Abuse, 08/17/2019 Tobacco Former smoker, quit more than 30 days ago Tobacco Use:. Never Smokeless Tobacco Use:. Cigarettes, Stopped age 55 Years., 02/18/2020 Family History Primary malignant neoplasm of female breast: Mother and Sister. Primary malignant neoplasm of lung: Brother. Immunizations Vaccine Date Status influenza virus vaccine, inactivated 03/11/2019 Recorded Normal [facility] Comment on above: Result Comment: Elec tronically Signed By: AIMEE FIGUEROA, Lj Thompson\Date and Time Signed: 03/14/20 17:25 EDT Pre-Certification Formon Pre-Certification Form [id number] 9#1.00CD:127 Normal [facility] Ambulatory Clinical Summaryo n 02-23-2020 Ambulatory Clinical Summary {[id number]}CD:[id number] Normal [facility] General Surgery Office/Clini c Noteon 02-23-2020 General Surgery Office/Clinic Note Chief Complaint post operative follow up HPI Staff 13 days post colostomy reversal. Minimal discomfort right of umbilicus. No use of pain medication. Denies drainage from incision sites. Wearing abdominal binder. Bowels moving well. Taking stool softener once per day. Afebrile. History of Present Illness 2 weeks s/p colostomy reversal; doing well, no drainage from incisions, minimal incisional soreness; soft bms, no N/V; no fevers; wearing abdominal binder, no heavy lifting. Review of Systems ROS - Provider Constitutional: no fever, no sweats, no weight loss. Eyes: no glasses, no blurred vision, no visual loss. ENMT: no dentures, no hoarseness, no swallowing difficulties, no hearing loss, no ear infection(s), no nose bleeds. Cardiovascular: normal blood pressure, no chest pain, regular heartbeat, no heart murmur. Respiratory: no shortness of breath, no cough, no asthma, no wheezing. Gastrointestinal: no nausea, no vomiting, no diarrhea, no constipation, no blood in stool, no change in bowel habits, mild abdominal pain, no hepatitis. Genitourinary: no kidney stones, no urine infection, no dysuria. Musculoskeletal: no pain, no weakness. Skin: no changing moles, no rash, no skin lumps. Neurologic: no seizures, no epilepsy, no headache. Psychiatric: no emotional or psychiatric problem. Heme/Lymph: no bleeding problems, no anemia, no blood clots, no transfusions. Allergy/Immunologic : no swollen lymph nodes/glands, no IV drug abuse. Other: Additional ROS info: Except as noted in the above Review of Systems and in the History of Present Illness, all other systems have been reviewed and are negative or noncontributory. Physical Exam Vitals & Measurements T: 36.4 ?C (Tympanic) abd: soft, normal bs, nontender, nondistended; incisions without erythema or drainage Assessment/Plan 1. History of colostomy reversal (Z98.890: Other specified postprocedural states) doing well, continue no lifting > 10 lbs for another 2 weeks; wear abdominal binder; follow up in 2 weeks for staple removal, call sooner if problems/questions. Follow-up No qualifying data available Problem List/Past Medical History Ongoing BMI 26.0-26.9,adult Colostomy present Diastasis recti History of colostomy reversal History of diverticulitis of colon Hypertension Perforated sigmoid colon Ventral incisional hernia Historical Sigmoid diverticulitis Procedure/Surgical History Take-down of colostomy (02/09/2020), Colostomy of sigmoid (08/06/2019), Exploratory laparotomy (08/06/2019). Medications hydrochlorothiazide 25 mg oral tablet Pantoprazole [address] Tab, 40 mg= 1 tab(s), Oral, Daily Stool Softener with Laxative, See Instructions Vitamin D3 2000 intl units, 1 tab, Oral, Daily Allergies No Known Allergies No Known Medication Allergies Social History Alcohol Current, 1-2 times per month, 08/17/2019 Substance Abuse - Denies Substance Abuse, 08/17/2019 Tobacco Former smoker, quit more than 30 days ago Tobacco Use:. Never Smokeless Tobacco Use:. Cigarettes, Stopped age 55 Years., 02/18/2020 Family History Primary malignant neoplasm of female breast: Mother and Sister. Primary malignant neoplasm of lung: Brother. Immunizations Vaccine Date Status influenza virus vaccine, inactivated 03/11/2019 Recorded Normal [facility] Comment on above: Result Comment: Elec tronically Signed By: AIMEE FIGUEROA, Lj Thompson\Date and Time Signed: 02/23/20 14:25 EDT Ambulatory Clinical Summaryo n 02-18-2020 Ambulatory Clinical Summary {[id number]}CD:[id number] 8 Normal [facility] Ambulatory Clinical Summary {[id number]}CD:[id number] 8 Normal [facility] General Surgery Office/Clini c Noteon 02-18-2020 General Surgery Office/Clinic Note Chief Complaint post operative follow up HPI Staff 9 day post operative follow up post colostomy reversal. History of Present Illness 9 days s/p colostomy reversal; doing well, appetite improving, no N/V; no abdominal pain, mild incisional soreness, only taking ibuprofen; frequent loose stools, none at night; no fevers, no drainage from incisions. wearing abdominal binder. Review of Systems PHQ Score Initial Depression Screen Score: 0 ROS - Provider Constitutional: no fever, no sweats, no weight loss. Eyes: no glasses, no blurred vision, no visual loss. ENMT: no dentures, no hoarseness, no swallowing difficulties, no hearing loss, no ear infection(s), no nose bleeds. Cardiovascular: normal blood pressure, no chest pain, regular heartbeat, no heart murmur. Respiratory: no shortness of breath, no cough, no asthma, no wheezing. Gastrointestinal: no nausea, no vomiting, mild diarrhea, no constipation, no blood in stool, no change in bowel habits, mild abdominal pain, no hepatitis. Genitourinary: no kidney stones, no urine infection, no dysuria. Musculoskeletal: no pain, no weakness. Skin: no changing moles, no rash, no skin lumps. Neurologic: no seizures, no epilepsy, no headache. Psychiatric: no emotional or psychiatric problem. Heme/Lymph: no bleeding problems, no anemia, no blood clots, no transfusions. Allergy/Immunologic : no swollen lymph nodes/glands, no IV drug abuse. Other: Additional ROS info: Except as noted in the above Review of Systems and in the History of Present Illness, all other systems have been reviewed and are negative or noncontributory. Physical Exam Vitals & Measurements T: 36.7 ?C (Tympanic) abd: soft, normal bs, nontender, nondistended, incisions without erythema or drainage, no ecchymoses; Assessment/Plan 1. History of colostomy reversal (Z98.890: Other specified postprocedural states) doing well; continue no lifting > 10 lbs for another 3 weeks; wear abdominal binder all the time; frequent small meals; can decrease colace to once daily; follow up in 1 week, call sooner if problems/questions. Orders: erythromycin, 500 mg = 1 tab(s), Oral, As Directed, take 2 tabs at 13:00, 17:00 and 21:00, the day prior to colostoy reversal, # 6 tab(s), Refills(s) 0, Pharmacy: [facility] [facility], 167.6, cm, 01/18/20 13:08:00 EDT, Height/Length Dosing, 69.4, kg, 01/18/20 13... Follow-up No qualifying data available Problem List/Past Medical History Ongoing BMI 26.0-26.9,adult Colostomy present Diastasis recti History of colostomy reversal History of diverticulitis of colon Hypertension Perforated sigmoid colon Ventral incisional hernia Historical Sigmoid diverticulitis Procedure/Surgical History Take-down of colostomy (02/09/2020), Colostomy of sigmoid (08/06/2019), Exploratory laparotomy (08/06/2019). Medications hydrochlorothiazide 25 mg oral tablet Pantoprazole [address] Tab, 40 mg= 1 tab(s), Oral, Daily Stool Softener with Laxative, See Instructions Vitamin D3 2000 intl units, 1 tab, Oral, Daily Allergies No Known Allergies No Known Medication Allergies Social History Alcohol Current, 1-2 times per month, 08/17/2019 Substance Abuse - Denies Substance Abuse, 08/17/2019 Tobacco Former smoker, quit more than 30 days ago Tobacco Use:. Never Smokeless Tobacco Use:. Cigarettes, Stopped age 55 Years., 02/18/2020 Family History Primary malignant neoplasm of female breast: Mother and Sister. Primary malignant neoplasm of lung: Brother. Immunizations Vaccine Date Status influenza virus vaccine, inactivated 03/11/2019 Recorded Normal [facility] Comment on above: Result Comment: Elec tronically Signed By: AIMEE FIGUEROA, Lj Thompson\Date and Time Signed: 02/18/20 17:52 EDT Pathology Noteon 02-15-2020 Pathology Note [id number] 85#1.00CD:127 [facility] Lab Reportson 02-10-2020 Lab Reports [id number] E2#1.00CD:127 [facility] Operative Reporton 0 Operative Report [id number] AE#1.00CD:127 [facility] Outside Colonoscopyon 2019 Outside Colonoscopy [id number] 8E#1.00CD:127 [facility] Outside Colonoscopyon 2019 Outside Colonoscopy [id number] A5#1.00CD:127 [facility] Formson 02-03-2020 Forms [id number] 6#1.00CD:127 [facility] Consenton 01-21-2020 Consent [id number] 46#1.00CD:127 [facility] Ambulatory Clinical Summaryo n 01-18-2020 Ambulatory Clinical Summary {[id number]}CD:[id number] 8 [facility] General Surgery Office/Clini c Noteon 01-18-2020 General Surgery Office/Clinic Note Chief Complaint discuss colostomy takedown HPI Staff Presents to discuss colostomy takedown. 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 Doing well. Incisional hernia unchanged since last visit; wearing abdominal binder. Bowels moving well; no issue with constipation. Denies abdominal pain, nausea or vomiting. Some mild irritation above stoma site. History of Present Illness 5 months s/p end sigmoid colostomy and Trista's pouch for perforated sigmoid diverticulosis; doing well, colostomy functioning well, no abdominal pain, ventral hernia in supraumbilical portion of incision; interested in reversal in January. no previous colonoscopy; no asa or NSAID use, no SBE prophylaxis, no other abdominal operations; no fmhx of GI malignancy or IBD. Review of Systems PHQ Score Initial Depression Screen Score: 0 Physical Exam Vitals & Measurements T: 36.9 ?C (Tympanic) HR: 80(Peripheral) RR: 16 BP: 122/74 HT: 167.6 cm HT: 167.64 cm WT: 69.4 kg WT: 69.4 kg BMI: 24.69 HEENT: normal conjunctiva, sclera clear, no scleral icterus, EOM intact, PERRLA, oral mucosa moist without lesions. Neck: trachea midline, no mass, symmetric, no thyromegaly or nodules, no adenopathy Respiratory: lungs CTA, respirations non labored. Cardiovascular: regular rate and rhythm, no murmur, no pedal edema or varicosities. Gastrointestinal: soft, non distended, no tenderness, no masses, ventral incisional hernia of supraumbilical midline incision, reducible, nontender, no skin changes; diastasis recti yes, left lower quadrant ostomy, functioning well; no hepatosplenomegaly; normal bs Lymphatic: no cervical adenopathy, no axillary adenopathy, Musculoskeletal: normal gait, digits and nails without infection, nodes, cyanosis, clubbing. Skin: no rashes, no lesions, no ulcers, no subcutaneous nodules, induration. Psychiatric/Neuro: oriented to time, place, person, judgement normal, affect appropriate for age, insight intact, no focal deficits. Tests: review of old records completed, Discussed surgical options, risks, and possible complications with patient. Assessment/Plan 1. Colostomy present (Z93.3: Colostomy status) plan colonoscopy with anesthesia, as outpatient, then colostomy reversal the following day, patient to stay on clear liquids rest of day after colonoscopy and take oral antibiotics; then NPO after midnight; informed consent obtained. patient understands the risks associated with COVID-19, and the need for preoperative testing with self-isolation until the procedure. signs/symptoms of incarceration/stran gulation of hernia explained in detail, and patient understands that he should seek prompt medical evaluation if they were to occur. neomycin and erythromycin base, 1 gm each at 13;00, 17;00 and 21:00 day prior to colostomy reversal, Unasyn 3 gms IV prior to OR [id number] mg sq 2 hours prior to colostomy reversal SCDs 2. History of diverticulitis of colon (Z87.19: Personal history of other diseases of the digestive system) see # 1 3. Ventral incisional hernia (K43.2: Incisional hernia without obstruction or gangrene) repair primarily at time of colostomy reversal 4. Diastasis recti (M62.08: Separation of muscle (nontraumatic), other site) see # 3 Follow-up No qualifying data available Patient Education End Colostomy Reversal, Care After End Colostomy Reversal Colonoscopy, Care After Colonoscopy Problem List/Past Medical History Ongoing BMI 26.0-26.9,adult Colostomy present Diastasis recti History of diverticulitis of colon Hypertension Perforated sigmoid colon Ventral incisional hernia Historical Sigmoid diverticulitis Procedure/Surgical History Colostomy of sigmoid (08/06/2019), Exploratory laparotomy (08/06/2019). Medications Erythromycin Base 500 mg Tab, 500 mg= 1 tab(s), Oral, As Directed hydrochlorothiazide 25 mg oral tablet neomycin 500 mg Tab, 1000 mg= 2 tab(s), Oral, As Directed Stool Softener with Laxative, See Instructions Vitamin D3 2000 intl units, 1 tab, Oral, Daily Allergies No Known Allergies No Known Medication Allergies Social History Alcohol Current, 1-2 times per month, 08/17/2019 Substance Abuse - Denies Substance Abuse, 08/17/2019 Tobacco Former smoker, quit more than 30 days ago Tobacco Use:. Never Smokeless Tobacco Use:. Cigarettes, Stopped age 55 Years., 01/18/2020 Family History Primary malignant neoplasm of female breast: Mother and Sister. Primary malignant neoplasm of lung: Brother. Immunizations Vaccine Date Status influenza virus vaccine, inactivated 03/11/2019 Recorded Normal [facility] Comment on above: Result Comment: Elec tronically Signed By: AIMEE FIGUEROA, Lj Thompson\Date and Time Signed: 01/18/20 14:06 EDT Patient Educationon 01-18-20 20 Patient Education End Colostomy Reversal Care After Refer to this sheet in the next few weeks. These instructions provide you with information on caring for yourself after your procedure. Your caregiver may also give you more specific instructions. Your treatment has been planned according to current medical practices, but problems sometimes occur. Call your caregiver if you have any problems or questions after your procedure. HOME CARE INSTRUCTIONS ? Change your bandages (dressings ) as directed by your caregiver. ? Keep the wound clean and dry. The wound may be washed gently with soap and water. Do not rub the wound. Gently pat the wound dry with a clean towel. ? Do not take baths, swim, or use hot tubs for 10 days, or as directed by your caregiver. ? Only take sjus-ivy-nkfjztf or prescription medicines for pain, discomfort, or fever as directed by your caregiver. ? You may resume a normal diet as directed by your caregiver. ? Do not lift more than 10 pounds (4.5 kg) or play contact sports for 4 weeks, or as directed by your caregiver. ? Use a stool softener if recommended by your caregiver, especially with pain medicine. SEEK MEDICAL CARE IF: ? You have redness, swelling, or increasing pain in the wound. ? You notice pus coming from the wound. ? You have drainage from the wound lasting longer than 1 day. ? You notice a bad smell coming from the wound or dressing. ? Your wound breaks open. ? You have persistent nausea or vomiting. ? You cannot have a bowel movement. ? You have pain that is not controlled with medicine. SEEK IMMEDIATE MEDICAL CARE IF: ? You have a fever. ? You have a rash. ? You have difficulty breathing. ? You have any reaction or side effects to your medicines. MAKE SURE YOU: ? Understand these instructions. ? Will watch your condition. ? Will get help right away if you are not doing well or get worse. Document Released: 08/10/2012 Document Reviewed: 08/10/2012 [facility] Patient Information ?2013 [employer]. End Colostomy Reversal An end colostomy reversal is surgery that reverses an end colostomy. The large intestine is disconnected from the opening in the abdomen (stoma ). It is then reconnected to the large intestine inside the body. A stoma and pouch are no longer needed. Bowel movements can resume through the rectum. LET YOUR CAREGIVER KNOW ABOUT: ? Allergies to food or medicine. ? Medicines taken, including vitamins, health supplements, herbs, eyedrops, prqy-loq-tefrwgq medicines, and creams. ? Use of steroids (by mouth or creams). ? Previous problems with anesthetics or numbing medicines. ? History of bleeding problems or blood clots. ? Previous surgery. ? Other health problems, including diabetes and kidney problems. ? Possibility of , if this applies. RISKS AND COMPLICATIONS General surgical complications may include: ? Reaction to anesthesia. ? Damage to surrounding nerves, tissues, or structures. ? Blood clot. ? Bleeding. ? Scarring. Specific risks for colostomy reversal, while rare, may include: ? Intestinal paralysis (ileus ). This is a normal part of recovery. It usually goes away in 3 to 7 days. However, it can last longer in some people. ? Leaking at the joined part of the intestine (anastamotic leak ). ? Infection of the surgical cut (incision ) or the place where the stoma was located. ? A collection of pus (abscess ) in the abdomen or pelvis. ? Intestinal blockage. ? Narrowing at the joined part of the intestine (stricture ). ? Urinary and sexual dysfunction. BEFORE THE PROCEDURE It is important to follow your surgeon's instructions prior to your procedure. This will help you to avoid complications. Steps before your procedure may include: ? A physical exam, rectal exam, X-rays, colonoscopy, and other procedures. ? Chemotherapy or radiation therapy if the stoma was created for cancer. ? A review of the procedure, the anesthesia being used, and what to expect after the procedure. You may be asked to: ? Stop taking certain medicines for several days prior to your procedure. This may include blood thinners (such as aspirin). ? Take certain medicines, such as antibiotics or stool softeners. ? Avoid eating and drinking after midnight the night before the procedure. This will help you to avoid complications from the anesthesia. ? Quit smoking. Smoking increases the chances of a healing problem after your procedure. PROCEDURE You will be given medicine that makes you sleep (general anesthetic ). The procedure may be done as open surgery, with a large incision. It may also be done as laparoscopic surgery, with several smaller incisions. The surgeon will stitch or staple the intestine ends back together. This surgery takes several hours. AFTER THE PROCEDURE ? You will be given pain medicine. ? Your caregivers will slowly increase your diet and movement. ? You can expect to be in the hospital for about 5 to 10 days. ? You should arrange for so (more content not included)... Normal [facility] Encounters Encounter Date Encounter Type Care Provider Facility Start: 08-02-2024 End: 08-03-2024 [facility] Result Encounter Generic External Data Provider [facility] Unsolicited Start: 08-02-2024 End: 08-03-2024 [facility] Result Encounter Generic External Data Provider [facility] External [facility] Unsolicited Start: 01-09-2022 Encounter for genera l adult medical examination without abnormal findings DR JEFFREY KENYON [facility] Start: 01-07-2022 End: 01-08-[address] JEFFREY KENYON Facility:[facility] Start: 01-07-2022 End: 01-08-2022 Encounter for general adult medical examination without abnormal findings DR JEFFREY KENYON Facility:[facility] Procedures Date Procedure Procedure Detail Performing Clinician Start: 08-02-2024 Radex scapula complete Generic External Data Provider Start: 01-07-[address] JEFFREY CRUZ Comment on above: Performed By: #### [facility] #### [facility] [address] [address] [address] Uday Snowden Payers Date Payer Category Payer Unknown [id number] 1960 Unknown [id number] Social History Date Type Detail Facility Tobacco smoking stat [facility] Tobacco smoking consumption unknown [facility] Start: 1960 Sex assigned at Not on file [facility] Gender identity Not [facility] are Summary Purpose Family History No Family History Records FoundNo Family History Records Found Advance Directives No Advanced Directives Records FoundNo Advanced Directives Records Found Additional Source Comments (unrecognized sect ion and content) No Status Records FoundNo Status Records Found INFORMATION SOURCE (unrecogn ized section and content) DATE CREATED AUTHOR 10/26/2020 [facility] DATE CREATED AUTHOR AUTHOR'S ERNESTO ATION 01/09/2022 [facility] FOR RECORDS PERTAINING TO PATIENTS WHO ARE OR HAVE BEEN ENROLLED IN A CHEMICAL DEPENDENCY/SUBSTANCEABUSE PROGRAM, SOME INFORMATION MAY BE OMITTED. This clinical summary was aggregated from multiple sources. Caution should be exercised in using it in the provision of clinical care. This summary normalizes information from multiple sources, and as a consequence, information in this document may materially change the coding, format and clinical context of patient data. In addition, data may be omitted in some cases. CLINICAL DECISIONS SHOULD BE BASED ON THE PRIMARY CLINICAL RECORDS. [facility]. provides no warranty or guarantee of the accuracy or completeness of information in this document.
== END 2024-08-30 07:37 | disposition home or self-care (01) ==
LOC: EC 07:37
PROVIDERS: PCP Family Medicine; Visit Provider Orthopaedic Surgery
DX: S42.191D Fracture of other part of scapula, right shoulder, subsequent encounter for fracture with routine healing (principal)
CPT/HCPCS: 73010

== ENCOUNTER 2025-01-17 07:30 | Outpatient (OUT) | payer OTHER, SELFPAY ==
--- OUTSIDE RECORDS SUMMARY | 2025-01-17 07:35 | XMS_ITS | CCD ---
Author Organization [facility] Care Team Providers Care Lifestyle Consultant Name Role Phone DR JEFFREY KENYON Admitting [...] Facility XR Scapula - right Viewson 0 08-30-[address] [address] XRay Report Signed Patient: JEFFREY BAXTER MR#: [id number] : 1960 Acct:[id number] Age/Sex: 64 / M ADM Date: 08/30/24 Loc: EC Attending Dr: Basilio Mccann M.D. Ordering Physician: Basilio Mccann M.D. Date of Service: 08/30/24 Procedure(s): XR scapula RT Accession Number(s): [id number] cc: Basilio Mccann M.D.; Jeffrey Kenyon M.D. The [address] [address] Patient Name: JEFFREY BAXTER MRN: TBH:[id number] date: 1960 Sex: M Assigned Patient Location: EC Current Patient Location: EC Accession/Order Number: [id number] Exam Date: 08/30/2024 08:05 Report Date: 08/30/2024 08:08 At the request of: BASILIO MCCANN MD Procedure: XR scapula RT RIGHT SCAPULA - 2 views. CLINICAL HISTORY: Follow-up scapular fracture COMPARISON: 08/02/2024 AP and Y views were obtained. A stable fracture is seen at the body of the scapula. No prominent callus formation is seen. There is no new fracture or dislocation.. No soft tissue abnormalities are seen. XR/XR scapula RT IMPRESSION: STABLE SCAPULAR FRACTURE. Impression dictated by: Kaitlin Pardo M.D.08/30/2024 8:08 AM Dictation Location: [place] [address] Electronically authenticated by: [id number] Y Date: 08/30/2024 08:08 Dictated By: Kaitlin Pardo M.D. Signed By: 08/30/24810 DD/ 7 TD/TT: Gauger Chief: [facility] Radiology, Radiologist, MD - 08/30/2024 [place] [address] XRay Report Signed Patient: JEFFREY BAXTER MR#: [id number] : 1960 Acct:[id number] Age/Sex: 64 / M ADM Date: 08/30/24 Loc: Attending Dr: Basilio Mccann M.D. Ordering Physician: Basilio Mccann M.D. Date of Service: 08/30/24 Procedure(s): XR scapula RT Accession Number(s): [id number] cc: Basilio Mccann M.D.; Jeffrey Kenyon M.D. The [place] [id number] Patient Name: JEFFREY BAXTER MRN: [facility]:[id number] date: 1960 Sex: M Assigned Patient Location: Current Patient Location: Accession/Order Number: [id number] Exam Date: 08/30/2024 08:05 Report Date: 08/30/2024 08:08 At the request of: BASILIO MCCANN MD Procedure: XR scapula RT RIGHT SCAPULA - 2 views. CLINICAL HISTORY: Follow-up scapular fracture COMPARISON: 08/02/2024 AP and Y views were obtained. A stable fracture is seen at the body of the scapula. No prominent callus formation is seen. There is no new fracture or dislocation.. No soft tissue abnormalities are seen. XR/XR scapula RT IMPRESSION: STABLE SCAPULAR FRACTURE. Impression dictated by: Kaitlin Pardo M.D.08/30/2024 8:08 AM Dictation Location: [place] [address] Electronically authenticated by: [id number] Y Date: 08/30/2024 08:08 Dictated By: Kaitlin Pardo M.D. Signed By: 08/30/24810 DD/ 7 TD/TT: Gauger Chief: [facility] [employer] Radiology Study observation (narrative) [facility] XR Scapula - right ViewsOrde red By: Radiologist Radiology on 08-30-2024 [facility] AWIDcar e Work Phone: XR Scapula - right Viewson 0 08-02-2024 [place] [address] XRay Report Signed Patient: JEFFREY BAXTER MR#: [id number] : 1960 Acct:[id number] Age/Sex: 64 / M ADM Date: 08/02/24 Loc: Attending Dr: Basilio Mccann M.D. Ordering Physician: Basilio Mccann M.D. Date of Service: 08/02/24 Procedure(s): XR scapula RT Accession Number(s): [id number] cc: Basilio Mccann M.D.; Jeffrey Kenyon M.D. [place] [id number] Patient Name: JEFFREY BAXTER MRN: TBH:[id number] date: 1960 Sex: M Assigned Patient Location: Current Patient Location: Accession/Order Number: [id number] Exam Date: 08/02/2024 16:40 Report Date: 08/02/2024 [...] Andre Jr., D.O.08/02/2024 5:11 PM Dictation Location: [place] [address] Electronically authenticated by: [id number] Y Date: 08/02/2024 17:11 Dictated By: Kaleb Andre M.D. Signed By: 08/02/241712 DD/ 10 TD/TT: Gauger Chief: [facility] Radiology, Radiologist, - 08/03/2024 [place] [address] XRay Report Signed Patient: JEFFREY BAXTER MR#: [id number] : 1960 Acct:[id number] Age/Sex: 64 / M ADM Date: 08/02/24 Loc: Attending Dr: Basilio Mccann M.D. Ordering Physician: Basilio Mccann M.D. Date of Service: 08/02/24 Procedure(s): XR scapula RT Accession Number(s): [id number] cc: Basilio Mccann M.D.; Jeffrey Kenyon M.D. The [place] [id number] Patient Name: JEFFREY BAXTER MRN: [facility]:[id number] date: 1960 Sex: M Assigned Patient Location: Current Patient Location: Accession/Order Number: [id number] Exam Date: 08/02/2024 16:40 Report Date: 08/02/2024 [...] Andre Jr., D.O.08/02/2024 5:11 PM Dictation Location: [place] [address] Electronically authenticated by: [id number] Y Date: 08/02/2024 17:11 Dictated By: Kaleb Andre M.D. Signed By: 08/02/241712 DD/ 10 TD/TT: Gauger Chief: [facility] [employer] Radiology Study observation (narrative) [facility] [employer] XR Scapula - right ViewsOrde red By: Radiologist Radiology on 08-02-2024 [employer] Work Phone: VIT D 25-OH [employer]on 2021 Vitamin D, 25-Hydroxy 46.0 ng/mL Normal 30.0-100.0 [facility] Comment on above: Result Comment: [place] min D deficiency has been defined by the [place] of Medicine and an Endocrine Society practice guideline as a level of serum 25-OH vitamin D less than 20 ng/mL (1,2). The Endocrine Society went on to further define vitamin D insufficiency as a level between 21 and 29 ng/mL (2). 1. IOM ([place] of [employer]). 2010. Dietary reference intakes for calcium and D. [place]: The National Academies Press. 2. Valeria LEE, Shanae [place], Randy GILBERT, et al. Evaluation, treatment, and prevention of vitamin D deficiency: an Endocrine Society clinical practice guideline. JCEM. 2010; 96(7):1911-30. Performed By: #### V ITADLC #### [facility] [address] [address] [address] Uday Snowden CBC AUTO DIFFon 01-07-2022 BASO # 0.1 103/ul Normal 0.0-0.1 [facility] Comment on above: Performed By: #### C BC #### [facility] [address] [address] [address] Uday Snowden Basophils/100 WBC (Bld) 0.9 % Normal 0.2-2.0 [facility] Comment on above: Performed By: #### C BC #### [facility] [address] [place] [address] Dr. Uday Snowden EO # 0.5 103/ul Normal 0.0-0.7 [facility] Comment on above: Performed By: #### C BC #### [facility] [address] [place] [address] Dr. Uday Snowden Eosinophils/100 WBC (Bld) 6.3 % Normal 0.9-7.0 [facility] Comment on above: Performed By: #### C BC #### [facility] [address] [place] [address] Dr. Uday Snowden Erythrocyte distribution width (RBC) [Ratio] 13.4 % Normal 11.0-15.0 [facility] Comment on above: Performed By: #### C BC #### [facility] [address] [place] [address] Dr. Uday Snowden Hematocrit (Bld) [Volume fraction] 40.4 % Critically low 42.0-54.0 [facility] Comment on above: Performed By: #### C BC #### [facility] [address] [place] [address] Dr. Uday Snowden Hemoglobin (Bld) [Mass/Vol] 14.0 g/dL Normal 14.0-18.0 [facility] Comment on above: Performed By: #### C BC #### [facility] [address] [place] [address] Dr. Uday Snowden IG # 0.04 10e3/ul Critically high 0.00-0.03 [facility] Comment on above: Performed By: #### C BC #### [facility] [address] [place] [address] Dr. Uday Snowden IG % 0.5 % Normal 0.0-0.5 [facility] Comment on above: Performed By: #### C BC #### [facility] [address] [place] [address] Dr. Uday Snowden LYMPH # 1.9 103/ul Normal 1.2-3.8 [facility] Comment on above: Performed By: #### C BC #### [facility] [address] [place] [address] Dr. Uday Snowden Lymphocytes/100 WBC (Bld) 26.0 % Normal 20.5-60.0 [facility] Comment on above: Performed By: #### C BC #### [facility] [address] [place] [address] Dr. Uday Snowden MANUAL DIFF REQ NO Normal [facility] Comment on above: Performed By: #### C BC #### [facility] [address] [place] [address] Dr. Uday Snowden MCH (RBC) [Entitic mass] 29.0 pg Normal 25.9-34.0 [facility] Comment on above: Performed By: #### C BC #### [facility] [address] [place] [address] Dr. Uday Snowden MCHC (RBC) [Mass/Vol] 34.7 g/dL Normal 29.9-35.2 [facility] Comment on above: Performed By: #### C BC #### [facility] [address] [place] [address] Dr. Uday Snowden MCV (RBC) [Entitic vol] 83.6 fL Normal 80.0-94.0 [facility] Comment on above: Performed By: #### C BC #### [facility] [address] [place] [address] Dr. Uday Snowden MONO # 0.5 103/ul Normal 0.3-0.8 [facility] Comment on above: Performed By: #### C BC #### [facility] [address] [place] [address] Dr. Uday Snowden Monocytes/100 WBC (Bld) 6.9 % Normal 1.7-12.0 [facility] Comment on above: Performed By: #### C BC #### [facility] [address] [place] [address] Dr. Uday Snowden NEUT # 4.4 103/ul Normal 1.4-6.5 [facility] Comment on above: Performed By: #### C BC #### [facility] [address] [place] [address] [address] Uday Snowden Neutrophils/100 WBC (Bld) 59.4 % Normal 43.0-75.0 [facility] Comment on above: Performed By: #### C BC #### [facility] [address] [place] [address] Dr. Uday Snowden Platelet mean volume (Bld) [Entitic vol] 9.9 fL Normal 9.5-13.5 [facility] Comment on above: Performed By: #### C BC #### [facility] [address] [place] [address] Dr. Uday Snowden PLT 267 103/ul Normal 150-450 [facility] Comment on above: Performed By: #### C BC #### [facility] [address] [place] [address] Dr. Uday Snowden RBC 4.83 106/ul Normal 4.70-6.10 [facility] Comment on above: Performed By: #### C BC #### [facility] [address] [place] [address] Dr. Uday Snowden WBC 7.4 103/ul Normal 4.0-11.0 [facility] Comment on above: Performed By: #### C BC #### [facility] [address] [place] [address] Dr. Uday Snowden GLYCOHEMOGLOBIN A1Con 2021 ADA RECOMMENDATION SEE BELOW Normal [facility] Comment on above: Result Comment: ADA RECOMMENDED LIMIT 4.0 - 6.0 ADA THERAPEUTIC TARGET < 7.0 ACTION SUGGESTED > 7.0 Performed By: #### A 1C #### [facility] [address] [place] [address] Dr. Uday Snowden Glucose [Mass/Vol] 103 mg/dL Normal [facility] Comment on above: Performed By: #### A 1C #### [facility] [address] [place] [address] Dr. Uday Snowden HbA1c (Bld) [Mass fraction] 5.2 % Normal 4.5-6.2 [facility] Comment on above: Performed By: #### A 1C #### [facility] [address] [place] [address] Dr. Uday Snowden LIPID PROFILEon 01-07-2022 CHOL-HDL RATIO NORM SEE BELOW Normal [facility] Comment on above: Result Comment: 3.3 - 4.4 LOW RISK 4.4 - 7.1 AVERAGE RISK 7.1 - 11.0 MODERATE RISK >11.0 HIGH RISK Performed By: #### B MP, TSH, LIPID, LIVER #### [facility] [address] [place] [address] [address] Uday Snowden Cholesterol [Mass/Vol] 219 mg/dL Critically high <=200 [facility] Comment on above: Performed By: #### B MP, TSH, LIPID, LIVER #### [facility] [address] [place] [address] Dr. Uday Snowden Cholesterol in HDL [Mass/Vol] 36 mg/dL Critically low 40-60 [facility] Comment on above: Performed By: #### B MP, TSH, LIPID, LIVER #### [facility] [address] [place] [address] [address] Uday Snowden Cholesterol in LDL [Mass/Vol] 136.8 mg/dL Normal [facility] Comment on above: Performed By: #### B MP, TSH, LIPID, LIVER #### [facility] [address] [place] [address] Dr. Uday Snowden Cholesterol.total/Cho lesterol in HDL [Mass ratio] 6.1 {ratio} Normal [facility] Comment on above: Performed By: #### B MP, TSH, LIPID, LIVER #### [facility] [address] [place] [address] Dr. Uday Snowden HDL NORMAL > or = 60 mg/dl - LOW CARDIOVASCULAR RISK <40 mg/dl - HIGH CARDIOVASCULAR RISK Normal [facility] Comment on above: Performed By: #### B MP, TSH, LIPID, LIVER #### [facility] [address] [place] [address] Dr. Uday Snowden LDL CALC NORMAL SEE BELOW Normal [facility] Comment on above: Result Comment: <100 mg/dl OPTIMAL 100 - 129 mg/dl NEAR OR ABOVE OPTIMAL 130 - 159 mg/dl BORDERLINE HIGH 160 - 189 mg/dl HIGH >190 mg/dl VERY HIGH Performed By: #### B MP, TSH, LIPID, LIVER #### [facility] [address] [place] [address] Dr. Uday Snowden Triglyceride [Mass/Vol] 231 mg/dL Critically high <=150 [facility] Comment on above: Performed By: #### B MP, TSH, LIPID, LIVER #### [facility] [address] [place] [address] Dr. Uday Snowden VLDL CALC 46.2 mg/dL Normal [facility] Comment on above: Performed By: #### B MP, TSH, LIPID, LIVER #### [facility] [address] [place] [address] Dr. Uday Snowden LIVER PROFILEon 01-07-2022 Albumin [Mass/Vol] 3.8 g/dL Normal 3.4-5.0 [facility] Comment on above: Performed By: #### B MP, TSH, LIPID, LIVER #### [facility] [address] [place] [address] Dr. Uday Snowden Albumin/Globulin [Mass ratio] 1.0 {ratio} Normal [facility] Comment on above: Performed By: #### B MP, TSH, LIPID, LIVER #### [facility] [address] [place] [address] Dr. Uday Snowden ALP [Catalytic activity/Vol] 65 U/L Normal 46-116 [facility] Comment on above: Performed By: #### B MP, TSH, LIPID, LIVER #### [facility] [address] [place] [address] Dr. Uday Snowden ALT [Catalytic activity/Vol] 20 U/L Normal 16-63 [facility] Comment on above: Performed By: #### B MP, TSH, LIPID, LIVER #### [facility] [address] [place] [address] Dr. Uday Snowden AST [Catalytic activity/Vol] 19 U/L Normal 15-37 [facility] Comment on above: Performed By: #### B MP, TSH, LIPID, LIVER #### [facility] [address] [place] [address] Dr. Uday Snowden BILI, CONJUGATED 0.1 mg/dL Normal 0.0-0.2 [facility] Comment on above: Performed By: #### B MP, TSH, LIPID, LIVER #### [facility] [address] [place] [address] Dr. Uday Snowden Bilirubin [Mass/Vol] 0.5 mg/dL Normal 0.2-1.0 [facility] Comment on above: Performed By: #### B MP, TSH, LIPID, LIVER #### [facility] [address] [place] [address] Dr. Uday Snowden Globulin (S) [Mass/Vol] 3.7 g/dL Normal [facility] Comment on above: Performed By: #### B MP, TSH, LIPID, LIVER #### [facility] [address] [place] [address] Dr. Uday Snowden Protein [Mass/Vol] 7.5 g/dL Normal 6.4-8.2 [facility] Comment on above: Performed By: #### B MP, TSH, LIPID, LIVER #### [facility] [address] [place] [address] Dr. Uday Snowden PROF CHEM 8 (BAS METB)on Anion gap [Moles/Vol] 12.9 mmol/L Normal [facility] Comment on above: Performed By: #### B MP, TSH, LIPID, LIVER #### [facility] [address] [place] [address] Dr. Uday Snowden Calcium [Mass/Vol] 9.1 mg/dL Normal 8.5-10.1 [facility] Comment on above: Performed By: #### B MP, TSH, LIPID, LIVER #### [facility] [address] [place] [address] Dr. Uday Snowden Chloride [Moles/Vol] 101 mmol/L Normal 98-107 [facility] Comment on above: Performed By: #### B MP, TSH, LIPID, LIVER #### [facility] [address] [place] [address] Dr. Uday Snowden CO2 [Moles/Vol] 27.2 mmol/L Normal 21.0-32.0 [facility] Comment on above: Performed By: #### B MP, TSH, LIPID, LIVER #### [facility] [address] [place] [address] Dr. Uday Snowden Creatinine [Mass/Vol] 1.22 mg/dL Normal 0.70-1.30 [facility] Comment on above: Performed By: #### B MP, TSH, LIPID, LIVER #### [facility] [address] [place] [address] Dr. Uday Snowden EGFR-AF NIUEAN >60 Normal >=60 [facility] Comment on above: Performed By: #### B MP, TSH, LIPID, LIVER #### [facility] [address] [place] [address] Dr. Uday Snowden EGFR-NON AF NIUEAN 60 mL/min/1.73m2 Normal >=60 [facility] Comment on above: Performed By: #### B MP, TSH, LIPID, LIVER #### [facility] [address] [place] [address] Dr. Uday Snowden Glucose [Mass/Vol] 98 mg/dL Normal 74-106 [facility] Comment on above: Performed By: #### B MP, TSH, LIPID, LIVER #### [facility] [address] [place] [address] Dr. Uday Snowden Potassium [Moles/Vol] 4.1 mmol/L Normal 3.5-5.1 [facility] Comment on above: Performed By: #### B MP, TSH, LIPID, LIVER #### [facility] [address] [place] [address] Dr. Uday Snowden Sodium [Moles/Vol] 137 mmol/L Normal 136-145 [facility] Comment on above: Performed By: #### B MP, TSH, LIPID, LIVER #### [facility] [address] [place] [address] Dr. Uday Snowden Urea nitrogen [Mass/Vol] 20.0 mg/dL Critically high 7.0-18.0 [facility] Comment on above: Performed By: #### B MP, TSH, LIPID, LIVER #### [facility] [address] [place], [place] [address] Dr. Uday Snowden Urea nitrogen/Creatinine [Mass ratio] 16.4 mg/mg Normal [facility] Comment on above: Performed By: #### B MP, TSH, LIPID, LIVER #### [facility] [address] [place], [place] [address] Dr. Uday Snowden TSHon 01-07-2022 TSH 1.234 uIU/mL Normal 0.358-3.740 [facility] Comment on above: Performed By: #### B MP, TSH, LIPID, LIVER #### [facility] [address] [place], [place] [address] Dr. Uday Snowden Ambulatory Clinical Summaryo n 03-28-2020 Ambulatory Clinical Summary {[id number]-[id number] [id number]-[id number]-21-8e-1 b-f7-96-48}CD:27153 8 Normal [facility] General Surgery Office/Clini c Noteon 03-28-2020 General [...] FIGUEROA, Lj Salcido Only if needed [address] [place] [address]- Additional Instructions: Problem List/Past Medical [...] influenza virus vaccine, inactivated 03/11/2019 Recorded Normal [facility] Comment on above: Result Comment: Elec tronically Signed By: AIMEE FIGUEROA, Lj Salcido\.br\Date and Time Signed: 03/28/20 13:25 EDT Provider Letter FTon 03-28 Provider Letter [facility] March 28, 2020 JEFFREY BAXTER [address] [id number] JEFFREY BAXTER 1960 To Whom It May Concern, The above named person may return to work without restrictions on 04/07/2020. Sincerely, Dr. Lj Peres MD General Surgery [facility] Auth for Release of Medical Recordson 03-20-2020 Auth for Release of Medical Records [id number]. [id number] E3#1.00CD:127 Normal [facility] Ambulatory Clinical Summaryo n 03-14-2020 Ambulatory Clinical Summary {[id number] 71-42-t1-49-08-a4-2 6-04-47-27}CD:28612 8 Normal [facility] General Surgery Office/Clini c Noteon 03-14-2020 General [...] influenza virus vaccine, inactivated 03/11/2019 Recorded Normal [facility] Comment on above: Result Comment: Elec tronically Signed By: AIMEE FIGUEROA, Lj Thompson\Date and Time Signed: 03/14/20 17:25 EDT Pre-Certification Formon Pre-Certification Form [id number] 9#1.00CD:127 Normal [facility] Ambulatory Clinical Summaryo n 02-23-2020 Ambulatory Clinical Summary {[id number]-59-ce- 99-80-d4-68-a2-41-f d-25-60-47}CD:95268 8 Normal [facility] General Surgery Office/Clini c Noteon 02-23-2020 General [...] influenza virus vaccine, inactivated 03/11/2019 Recorded Normal [facility] Comment on above: Result Comment: Elec tronically Signed By: AIMEE FIGUEROA, Lj Thompson\Date and Time Signed: 02/23/20 14:25 EDT Ambulatory Clinical Summaryo n 02-18-2020 Ambulatory Clinical Summary {[id number] 8a-[id number]-c3-e0-a9-d e-f6-90-e3}CD:86800 8 Normal [facility] Ambulatory Clinical Summary {0m-[id number]-24-c1-30- 39-mo-18-40-b0-8d-1 6-43-8f-58}CD:97634 8 Normal [facility] General Surgery Office/Clini c Noteon 02-18-2020 General [...] reversal, # 6 tab(s), Refills(s) 0, Pharmacy: [id number] [address] [facility], 167.6, cm, 01/18/20 13:08:00 EDT, Height/Length Dosing, [...] influenza virus vaccine, inactivated 03/11/2019 Recorded Normal [facility] Comment on above: Result Comment: Elec tronically Signed By: AIMEE FIGUEROA, Lj Thompson\Date and Time Signed: 02/18/20 17:52 EDT Pathology Noteon 02-15-2020 Pathology Note [id number] 85#1.00CD:127 [facility] Lab Reportson 02-10-2020 Lab Reports [id number] E2#1.00CD:127 [facility] Operative Reporton 0 Operative Report [id number] AE#1.00CD:127 [facility] Outside Colonoscopyon 2019 Outside Colonoscopy [id number] 8E#1.00CD:127 [facility] Outside Colonoscopyon 2019 Outside Colonoscopy [id number] A5#1.00CD:127 [facility] Formson 02-03-2020 Forms [id number] 6#1.00CD:127 [facility] Consenton 01-21-2020 Consent [id number] 46#1.00CD:127 [facility] Ambulatory Clinical Summaryo n 01-18-2020 Ambulatory Clinical Summary {80-26-if-2d-d5-d5- 67-e9-b0-b5-0a-1b-e 4-c8-e6-9a}CD:72128 8 [facility] General Surgery Office/Clini c Noteon 01-18-2020 General [...] Unasyn 3 gms IV prior to OR [id number] mg sq 2 hours prior to colostomy [...] influenza virus vaccine, inactivated 03/11/2019 Recorded Normal [facility] Comment on above: Result Comment: Elec tronically [...] directed by your caregiver. ? Only take qhiw-dsk-iyzoqyz or prescription medicines for pain, discomfort, or [...] worse. Document Released: 08/10/2012 Document Reviewed: 08/10/2012 ExitCare? Patient Information ?2013 [employer] End Colostomy Reversal An end colostomy reversal [...] taken, including vitamins, health supplements, herbs, eyedrops, vaxr-hpf-hwpsybe medicines, and creams. ? Use of steroids [...] for so (more content not included)... Normal [facility] Encounters Encounter Date Encounter Type Care Provider Facility Start: 08-30-2024 End: 08-30-2024 [facility] Result Encounter Generic External Data Provider [facility] External Department Unsolicited Start: 08-30-2024 End: 08-30-2024 [facility] Result Encounter Generic External Data Provider [facility] External Department Unsolicited Start: 08-02-2024 End: 08-03-2024 [facility] Result Encounter Generic External Data Provider [facility] External Department Unsolicited Start: 08-02-2024 End: 08-03-2024 [facility] Result Encounter Generic External Data Provider [facility] External Department Unsolicited Start: 01-09-2022 Encounter for genera l adult medical examination without abnormal findings DR JEFFREY KENYON [facility] Start: 01-07-2022 End: 01-08-[address] JEFFREY KENYON Facility:[facility] Start: 01-07-2022 End: 01-08-2022 Encounter for general adult medical examination without abnormal findings DR JEFFREY KENYON Facility:[facility] Procedures Date Procedure Procedure Detail Performing Clinician Start: 08-30-2024 Radex scapula complete Generic External Data Provider Start: 08-02-2024 Radex scapula complete Generic External Data Provider Start: 01-07-[address] JEFFREY CRUZ Comment on above: Performed By: #### [facility] #### [facility] [address] [place] [address] Dr. Uday Snowden Payers Date Payer Category Payer Unknown [id number] 1960 Unknown [id number] Social History Date Type Detail [facility] Start: [...] section and content) DATE CREATED [facility]2020 [facility] DATE CREATED AUTHOR AUTHOR'S ORGANIZ ATION 01/09/2022 [facility] FOR RECORDS PERTAINING TO PATIENTS WHO ARE [...] BE BASED ON THE PRIMARY CLINICAL RECORDS. [facility], [facility]. provides no warranty or guarantee of the accuracy or completeness of information in this document.
[2025-01-17 07:55] LABS: Hematocrit 41.2 % (42.0-54.0); Hemoglobin 14.1 g/dL (14.0-18.0); Immature Granulocytes Abs Auto 0.02 10^3/uL (0.00-0.03); Immature Granulocytes Pct Auto 0.3 % (0.0-0.5); Lymphocytes Absolute Auto 1.6 10^3/uL (1.2-3.8); Mean Corpuscular HGB Conc 34.2 g/dL (29.9-35.2); Mean Corpuscular Hemoglobin 29.1 pg (25.9-34.0); Mean Corpuscular Volume 85.1 fL (80.0-94.0); Platelet Count 221 10^3/uL (150-450); Red Blood Count 4.84 10^6/uL (4.70-6.10); White Blood Count 7.1 10^3/uL (4.0-11.0)
[2025-01-17 09:50] LABS: Alanine Aminotransferase 22 U/L (16-63); Albumin Globulin Ratio 0.9; Albumin Level 3.7 g/dL (3.4-5.0); Alkaline Phosphatase 68 U/L (46-116); Anion Gap 9.4; Aspartate Amino Transferase 17 U/L (15-37); Blood Urea Nitrogen 15.0 mg/dL (7.0-18.0); Calcium 9.1 mg/dL (8.5-10.1); Carbon Dioxide 30.0 mmol/L (21.0-32.0); Chloride 104 mmol/L (98-107); Cholesterol 223 mg/dL (<=200); Estimated GFR (African America >60 (>=60 mL/min/1.73m^2); Estimated GFR (Non-African Ame >60 (>=60 mL/min/1.73m^2); Free T3 2.41 pg/mL (2.18-3.98); Globulin 4.2 g/dL; Glucose 107 mg/dL (74-106); HDL Cholesterol 44 mg/dL (40-60); Potassium 4.4 mmol/L (3.5-5.1); Sodium 139 mmol/L (136-145); Thyroid Stimulating Hormone 1.698 uIU/mL (0.358-3.740); Total Protein 7.9 g/dL (6.4-8.2); Triglycerides 192 mg/dL (<=150); Uric Acid 5.9 mg/dL (3.5-7.2); VLDL CHOLESTEROL 38.4 mg/dL
== END 2025-01-17 07:31 | disposition home or self-care (01) ==
LOC: LAB 07:32
PROVIDERS: PCP Family Medicine; Visit Provider Family Medicine
DX: Z00.00 Encounter for general adult medical examination without abnormal findings (principal); Z12.5 Encounter for screening for malignant neoplasm of prostate
CPT/HCPCS: 36415; 80053; 80061; 83036; 83525; 84436; 84443; 84481; 84550; 85025; G0103

== ENCOUNTER 2025-04-26 07:36 | Outpatient (OUT) | payer OTHER, SELFPAY ==
--- OUTSIDE RECORDS SUMMARY | 2025-04-26 07:43 | XMS_ITS | CCD ---
Author Organization [facility] Care Team Providers Care Road Marker Name Role Phone DR UVALDO KENYON Admitting Unavailable DR UVALDO KENYON Attending Unavailable DR UVALDO KENYON Primary Care Unavailable DR UVALDO KENYON Consulting Unavailable Unavailable Primary Care Provider Unavailabl e Problems Problem ClassificationProblemDateDocumented DateEpisodic/ChronicNutritional deficiencies (1 source)Vitamin D deficiency, unspecified; Translations: [VITAMIN D DEFICIENCY UNSPECIFIED]Onset: 62-22-3217CtbllaeXhhzl screening for suspected conditions (not mental disorders or infectious disease) (1 source)Encounter for screening for malignant neoplasm of prostate; Translations: [ENC SCREEN MALIG NEOPLASM PROSTATE]Onset: 35-11-1257Cssdfuyq Results Test NameValueInterpretationReference RangeFacilityXR Scapula - right Viewson 37-02-[place]204[place] [id number] XRay Report Signed Patient: UVALDO HILLMAN MR#: [id number] : 1960 Acct:[id number] Age/Sex: 64 / M ADM Date: 08/30/24 Loc: EC Attending Dr: Basilio Mccann M.D. Ordering Physician: Basilio Mccann M.D. Date of Service: 08/30/24 Procedure(s): XR scapula RT Accession Number(s): [id number] cc: Basilio Mccann M.D.; Uvaldo Kenyon M.D. [address] [address] Patient Name: UVALDO HILLMAN MRN: [id number] date: 1960 Sex: M Assigned Patient Location: EC Current Patient Location: EC Accession/Order Number: [id number] Exam Date: 08/30/2024 08:05 Report Date: 08/30/2024 [...] Kaitlin Pardo M.D.08/30/2024 8:08 AM Dictation Location: [place] [address] Electronically authenticated by: [id number] Y Date: 08/30/2024 08:08 Dictated By: Kaitlin Pardo M.D. Signed By: 08/30/24810 DD/ 7 TD/TT: Heel Seat Fitter:TBHRadiology, Radiologist, - 08/30/2024 [place] [address] XRay Report Signed Patient: UVALDO HILLMAN MR#: [id number] : 1960 Acct:[id number] Age/Sex: 64 / M ADM Date: 08/30/24 Loc: Attending Dr: Basilio Mccann M.D. Ordering Physician: Basilio Mccann M.D. Date of Service: 08/30/24 Procedure(s): XR scapula RT Accession Number(s): [id number] cc: Basilio Mccann M.D.; Uvaldo Kenyon M.D. The [place] [id number] Patient Name: UVALDO HILLMAN MRN: [id number] date: 1960 Sex: M Assigned Patient Location: Current Patient Location: Accession/Order Number: [id number] Exam Date: 08/30/2024 08:05 Report Date: 08/30/2024 [...] Kaitlin Pardo M.D.08/30/2024 8:08 AM Dictation Location: [place] [address] Electronically authenticated by: [id number] Y Date: 08/30/2024 08:08 Dictated By: Kaitlin Pardo M.D. Signed By: 08/30/24810 DD/ 7 TD/TT: Heel Seat Fitter: NEREYDA HealthcareRadiology Study observation (narrative)[facility] HealthcareXR Scapula - right ViewsOrdered By: Radiologist Radiology on 40-04-9413[facility] Work Phone: XR Scapula - right Viewson 35-90-7[address], [place] [address] XRay Report Signed Patient: UVALDO HILLMAN MR#: [id number] : 1960 Acct:[id number] Age/Sex: 64 / M ADM Date: 08/02/24 Loc: Attending Dr: Basilio Mccann M.D. Ordering Physician: Basilio Mccann M.D. Date of Service: 08/02/24 Procedure(s): XR scapula RT Accession Number(s): [id number] cc: Basilio Mccann M.D.; Uvaldo Kenyon M.D. The [address] [address] Patient Name: UVALDO HILLMAN MRN: [id number] date: 1960 Sex: M Assigned Patient Location: Current Patient Location: Accession/Order Number: [id number] Exam Date: 08/02/2024 16:40 Report Date: 08/02/2024 17:11 At the request of: BASILIO MCCANN MD Procedure: XR scapula RT RIGHT SCAPULA - 2 views CLINICAL HISTORY: Follow-up scapular fracture. COMPARISON: Right shoulder 07/08/2024 FINDINGS: Interval sclerosis along the patient's scapular fracture suggestive of healing response. No acute process is seen. XR/XR scapula RT IMPRESSION: HEALING SCAPULAR FRACTURE. Impression dictated by: Kaleb Andre Jr. DDeannaODeanna08/02/2024 5:11 PM Dictation Location: [place] [address] Electronically authenticated by: [id number] Y Date: 08/02/2024 17:11 Dictated By: Kaleb Andre M.D. Signed By: 08/02/241712 DD/ 10 TD/TT: Heel Seat Fitter:DUONGadiolRufus ortiz, - 08/03/2024 [place] [address] XRay Report Signed Patient: UVALDO HILLMAN MR#: [id number] : 1960 Acct:[id number] Age/Sex: 64 / M ADM Date: 08/02/24 Loc: Attending Dr: Basilio Mccann M.D. Ordering Physician: Basilio Mccann M.D. Date of Service: 08/02/24 Procedure(s): XR scapula RT Accession Number(s): [id number] cc: Basilio Mccann M.D.; Uvaldo Kenyon M.D. The [place] [id number] Patient Name: UVALDO HILLMAN MRN: [id number] date: 1960 Sex: M Assigned Patient Location: Current Patient Location: Accession/Order Number: [id number] Exam Date: 08/02/2024 16:40 Report Date: 08/02/2024 [...] Andre Jr., D.O.08/02/2024 5:11 PM Dictation Location: [place] [address] Electronically authenticated by: [id number] Y Date: 08/02/2024 17:11 Dictated By: Kaleb Andre M.D. Signed By: 08/02/241712 DD/ 10 TD/TT: Heel Seat Fitter: NEREYDA HealthcareRadiology Study observation (narrative)[facility] HealthcareXR Scapula - right ViewsOrdered By: Radiologist Radiology on 09-26-2420EBYN [employer] Work Phone: VIT D 25-OH LABCORPon 10-58-8273Pnangbb D, 25-Hydroxy 46.0 ng/sPYzfqty02.0-100.0The [facility] CenterComment on above:Result Comment: Vitamin D deficiency has been defined by the [place] of [employer] and an Endocrine Society practice guideline as a level of serum 25-OH vitamin D less than 20 ng/mL (1,2). The Endocrine Society went on to further define vitamin D insufficiency as a level between 21 and 29 ng/mL (2). 1. IOM ([place] [employer]). 2010. Dietary reference intakes for calcium and D. [place]: The National Academies Press. 2. Valeria MF, Shanae NC, Randy GILBERT, et al. Evaluation, treatment, and prevention of vitamin D deficiency: an Endocrine Society clinical practice guideline. JCEM. 2010; 96(7):1911-30.Performed By: #### VITADLC #### [facility] [address] [place] [address] [address] Uday SnowdenCBC AUTO DIFFon 64-25-4013BBHE #0.1 103/ulNormal0.0-0.1The [facility] CenterComment on above:Performed By: #### CBC #### [facility] [address] [place] [address] [address] Uday SnowdenBasophils/100 WBC (Bld)0.9 %Normal0.2-2.0[facility] Comment on above:Performed By: #### CBC #### [facility] [address] [place] [address] Dr. Uday Joe #0.5 103/ulNormal0.0-0.7The [facility] CenterComment on above: Performed By: #### CBC #### [facility] [address] [place] [address] Dr. Uday Uriasosinophils/100 WBC (Bld)6.3 %Normal0.9-7.0[facility] Comment on above:Performed By: #### CBC #### [facility] [address] [place] [address] Dr. Uday Lundythrocyte distribution width (RBC) [Ratio]13.4 %Ngxnsh02.0-15.0 [facility] CenterComment on above:Performed By: #### CBC #### [facility] [address] [place] [address] Dr. Uday SnowdenHematocrit (Bld) [Volume fraction]40.4 %Critically low42.0-54.0 [facility] CenterComment on above:Performed By: #### CBC #### [facility] [address] [place] [address] Dr. Uday SnowdenHemoglobin (Bld) [Mass/Vol]14.0 g/wXOkvemq06.0-18.0The [facility] CenterComment on above:Performed By: #### CBC #### [facility] [address] [place] [address] Dr. Uday Quiroz #0.04 10e3/ulCritically high0.00-0.03The [facility] Comment on above:Performed By: #### CBC #### [facility] [address] [place] [address] Dr. Uday Quiroz %0.5 %Normal0.0-0.5The [facility] CenterComment on above: Performed By: #### CBC #### [facility] [address] [place] [address] Dr. Uday Velez #1.9 103/ulNormal1.2-3.8The [facility] CenterComment on above:Performed By: #### CBC #### [facility] [address] [place] [address] Dr. Uday Chaconhocytes/100 WBC (Bld)26.0 %Fkugac87.5-60.0The [facility] CenterComment on above:Performed By: #### CBC #### [facility] [address] [place] [address] Dr. Uday Vásquez DIFF REQNONormalThe [facility] CenterComment on above: Performed By: #### CBC #### [facility] [address] [place] [address] Dr. Uday Locke (RBC) [Entitic mass]29.0 fdGoyvar96.9-34.0The [facility] CenterComment on above:Performed By: #### CBC #### [facility] [address] [place] [address] Dr. Uday Locke (RBC) [Mass/Vol]34.7 g/zFOwdcpu68.9-35.2The [facility] CenterComment on above:Performed By: #### CBC #### [facility] [address] [place] [address] Dr. Uday Sweet (RBC) [Entitic vol]83.6 aGUemewq03.0-94.0The [facility] CenterComment on above:Performed By: #### CBC #### [facility] [address] [place] [address] Dr. Uday Greco #0.5 103/ulNormal0.3-0.8The [facility] CenterComment on above:Performed By: #### CBC #### [facility] [address] [place] [address] Dr. Uday Morrisonocytes/100 WBC (Bld)6.9 %Normal1.7-12.0The [facility] Comment on above:Performed By: #### CBC #### [facility] [address] [place] [address] Dr. Uday CartyUT #4.4 103/ulNormal1.4-6.5The [facility] CenterComment on above:Performed By: #### CBC #### [facility] [address] [place] [address] Dr. Uday Cartyutrophils/100 WBC (Bld)59.4 %Gjfqel61.0-75.0The [facility] CenterComment on above:Performed By: #### CBC #### [facility] [address] [place] [address] Dr. Uday SnowdenPlatelet mean volume (Bld) [Entitic vol]9.9 fLNormal9.5-13.5The [facility] CenterComment on above:Performed By: #### CBC #### [facility] [address] [place] [address] Dr. Uday SnowdenPLT267 103/tcIwlkdv331-087Lnh [facility] CenterComment on above: Performed By: #### CBC #### [facility] [address] [place] [address] Dr. Uday SnowdenRBC4.83 106/ulNormal4.70-6.10The [facility] CenterComment on above:Performed By: #### CBC #### [facility] [address] [place] [address] Dr. Uday SnowdenWBC7.4 103/ulNormal4.0-11.0[facility] CenterComascension genesys hospital on above: Performed By: #### CBC #### [facility] [address] [place] [address] Dr. Uday SnowdenGLYCOHEMOGLOBIN A1Con 37-74-3137DZB RECOMMENDATIONSEE BELOWNormDunlap Memorial HospitalComascension genesys hospital on above:Result Comment: ADA RECOMMENDED LIMIT 4.0 - 6.0 ADA THERAPEUTIC TARGET < 7.0 ACTION SUGGESTED > 7.0Performed By: #### A1C #### [facility] [address] [place] [address] Dr. Uday SnowdenGlucose [Mass/Vol]103 mg/dLNormalThBrecksville VA / Crille HospitalComment on above:Performed By: #### A1C #### [facility] [address] [place] [address] [address] Uday SnowdenHbA1c (Bld) [Mass fraction]5.2 %Normal4.5-6.2[facility] on above:Performed By: #### A1C #### [facility] [address] [place] [address] [address] Uday AngelID PROFILEon 63-35-8860LTLW-HDL RATIO NORMSEE [facility] HospitalComascension genesys hospital on above:Result Comment: 3.3 - 4.4 LOW RISK 4.4 - 7.1 AVERAGE RISK 7.1 - 11.0 MODERATE RISK >11.0 HIGH RISKPerformed By: #### BMP, TSH, LIPID, LIVER #### [facility] [address] [place] [address] [address] Uday Fontaineesterol [Mass/Vol]219 mg/dLCritically high<=200The [facility] on above:Performed By: #### BMP, TSH, LIPID, LIVER #### [facility] [address] [place] [address] [address] Uday Fontaineesterol in HDL [Mass/Vol]36 mg/dLCritically xll27-61Jsz [facility] on above:Performed By: #### BMP, TSH, LIPID, LIVER #### [facility] [address] [place] [address] [address] Uday SnowdenCholesterol in LDL [Mass/Vol]136.8 mg/dLChildren's Hospital for Rehabilitation on above:Performed By: #### BMP, TSH, LIPID, LIVER #### [facility] [address] [place] [address] [address] Uday Fontaineesterkrystina.total/Cholesterol in HDL [Mass ratio]6.1 {ratio} NormalThe [facility] on above:Performed By: #### BMP, TSH, LIPID, LIVER #### [facility] [address] [place] [address] [address] Uday SnowdenHDL NORMAL> or = 60 mg/dl - LOW CARDIOVASCULAR RISK <40 mg/dl - HIGH CARDIOVASCULAR RISKPremier Health Upper Valley Medical CenterComascension genesys hospital on above:Performed By: #### BMP, TSH, LIPID, LIVER #### [facility] [address] [place] [address] [address] Uday Gonzalez CALC NORMALSEE BELOWChildren's Hospital for Rehabilitation on above:Result Comment: <100 mg/dl OPTIMAL 100 - 129 mg/dl NEAR OR ABOVE OPTIMAL 130 - 159 mg/dl BORDERLINE HIGH 160 - 189 mg/dl HIGH >190 mg/dl VERY HIGH Performed By: #### BMP, TSH, LIPID, LIVER #### [facility] [address] [place] [address] [address] Uday SnowdenTriglyceride [Mass/Vol]231 mg/dLCritically high<=150The [facility] on above:Performed By: #### BMP, TSH, LIPID, LIVER #### [facility] [address] [place] [address] [address] Uday SnowdenVLDL CALC46.2 mg/dLNoAkron Children's HospitalComascension genesys hospital on above: Performed By: #### BMP, TSH, LIPID, LIVER #### [facility] [address] [place] [address] Dr. Uday Sellers PROFILEon 86-90-7949Mvgrhcd [Mass/Vol]3.8 g/dLNormal3.4-5.0 The [facility] on above:Performed By: #### BMP, TSH, LIPID, LIVER #### [facility] [address] [place] [address] [address] Uday SnowdenAlbumin/Globulin [Mass ratio]1.0 {ratio}NormalThe [facility] on above:Performed By: #### BMP, TSH, LIPID, LIVER #### [facility] [address] [place] [address] [address] Uday Fernández [Catalytic activity/Vol]65 U/VHwlzum46-546Wyg [facility] on above:Performed By: #### BMP, TSH, LIPID, LIVER #### [facility] [address] [place] [address] [address] Uday Cantu [Catalytic activity/Vol]20 U/WJfsxfu29-20Fzp Oakland HospitalComment on above:Performed By: #### BMP, TSH, LIPID, LIVER #### [facility] [address] [place] [address] [address] Uday SnowdenAST [Catalytic activity/Vol]19 U/DVmtmqt28-37HimSycamore Medical CenterComment on above:Performed By: #### BMP, TSH, LIPID, LIVER #### [facility] [address] [place] [address] [address] Uday McconnellI, CONJUGATED0.1 mg/dLNormal0.0-0.2[facility] Comment on above:Performed By: #### BMP, TSH, LIPID, LIVER #### [facility] [address] [place] [address] Dr. Uday Mcconnellirubin [Mass/Vol]0.5 mg/dLNormal0.2-1.0[facility] Comment on above:Performed By: #### BMP, TSH, LIPID, LIVER #### [facility] [address] [place] [address] Dr. Uday SnowdenGlobulin (S) [Mass/Vol]3.7 g/dLNormalThe [facility] CenterComment on above:Performed By: #### BMP, TSH, LIPID, LIVER #### [facility] [address] [place] [address] Dr. Uday SnowdenProtein [Mass/Vol]7.5 g/dLNormal6.4-8.2[facility] Comment on above:Performed By: #### BMP, TSH, LIPID, LIVER #### [facility] [address] [place] [address] Dr. Uday SnowdenPROF CHEM 8 (BAS METB)on 62-22-3550Pckrh gap [Moles/Vol]12.9 mmol/LNormalSycamore Medical CenterComment on above:Performed By: #### BMP, TSH, LIPID, LIVER #### [facility] [address] [place] [address] Dr. Uday SnowdenCalcium [Mass/Vol]9.1 mg/dLNormal8.5-10.1[facility] Comment on above:Performed By: #### BMP, TSH, LIPID, LIVER #### [facility] [address] [place] [address] [address] Uday SnowdenChloride [Moles/Vol]101 mmol/KDjypjz93-171HcmSycamore Medical Center Comment on above:Performed By: #### BMP, TSH, LIPID, LIVER #### [facility] [address] [place] [address] Dr. Uday SnowdenCO2 [Moles/Vol]27.2 mmol/WWldxwf85.0-32.0[facility] Comment on above:Performed By: #### BMP, TSH, LIPID, LIVER #### [facility] [address] [place] [address] Dr. Uday SnowdenCreatinine [Mass/Vol]1.22 mg/dLNormal0.70-1.30[facility] CenterComment on above:Performed By: #### BMP, TSH, LIPID, LIVER #### [facility] [address] [place] [address] Dr. Frye ChangEGFR-AF SLOVAK>60Normal>=60[facility] CenterComment on above:Performed By: #### BMP, TSH, LIPID, LIVER #### [facility] [address] [place] [address] Dr. Uday UriasGFR-NON AF IGBRJVZW91 mL/min/1.20p2Nfkkfp>=60[facility] CenterComment on above:Performed By: #### BMP, TSH, LIPID, LIVER #### [facility] [address] [place] [address] Dr. Uday SnowdenGlucose [Mass/Vol]98 mg/wJNzbuxb31-869YxrSycamore Medical Center Comment on above:Performed By: #### BMP, TSH, LIPID, LIVER #### [facility] [address] [place] [address] Dr. Uday SnowdenPotassium [Moles/Vol]4.1 mmol/LNormal3.5-5.1[facility] Comment on above:Performed By: #### BMP, TSH, LIPID, LIVER #### [facility] [address] [place] [address] Dr. Uday SnowdenSodium [Moles/Vol]137 mmol/IIsqzdk812-502Haa [facility] Comment on above:Performed By: #### BMP, TSH, LIPID, LIVER #### [facility] [address] [place] [address] [address] Uday Kumar nitrogen [Mass/Vol]20.0 mg/dLCritically high7.0-18.0The [facility] CenterComment on above:Performed By: #### BMP, TSH, LIPID, LIVER #### [facility] [address] [place] [address] [address] Uday Kumar nitrogen/Creatinine [Mass ratio]16.4 mg/mgNoalThe [facility] CenterComment on above:Performed By: #### BMP, TSH, LIPID, LIVER #### [facility] [address] [place] [address] [address] Uday Recinos 14-46-1666PDO9.234 uIU/mLNormal0.358-3.740The [facility] CenterComment on above:Performed By: #### BMP, TSH, LIPID, LIVER #### [facility] [address] [place] [address] [address] Uday SnowdenAmbulatory Clinical Summaryon 31-68-2046Tewxeyskui Clinical Summary{oe-30-6m-l2-qn-94-79-1a-k0-oz-70-6v-1b-f7-96-48}CD:[id number] Barnesville HospitalGeneral Surgery Office/Clinic Noteon 27-92-7438Pfyqvdj Surgery Office/Clinic NoteChief Complaint post operative follow up HPI Staff 7 week post operative follow up post colostomy reversal. Minimal intermittent discomfort. No use ofpain medication. Bowels moving well. Taking stool softener [...] swallowing difficulties, no hearing loss, no ear infection(s),no nose bleeds. Cardiovascular: normal blood pressure, no [...] no anemia, no blood clots, no transfusions. Allergy/Immunologic: no swollen lymph nodes/glands, no IV drug [...] FIGUEROA, Lj Salcido Only if needed [address] [place] [address]- Additional Instructions: Problem List/Past Medical [...] Date Status influenza virus vaccine, inactivated 03/11/2019 RecordedWVUMedicine Barnesville HospitalComment on above:Result Comment: Electronically Signed By: AIMEE FIGUEROA, Lj Salcido\.br\Date and Time Signed: 03/28/20 13:25 EDTProvider Letter FTon 85-73-1349Olycixsi Letter [facility] [place] 28, 2020 UVAL[address] H[address]MAN [address] [place] [address] RAFY UVALDO 1960 To Whom It May Concern, The above named person may return to work without restrictions on 04/07/2020. Sincerely, Dr. Lj Peres MD General SurgeryLakeHealth [facility] for Release of Medical Recordson 14-93-4827Cbpf for Release of Medical Records [id number]#1.00CD:127WVUMedicine Barnesville HospitalAmbulatory Clinical Summaryon 42-27-3221Dbsawglrix Clinical Summary {k1-e2-4e-xg-51-66-85-56-p2-60-43-d3-26-04-47-27}CD:[id number] Barnesville HospitalGeneral Surgery Office/Clinic Noteon 23-76-0782Ghbbexu Surgery Office/Clinic NoteChief Complaint post operative follow up HPI Staff [...] swallowing difficulties, no hearing loss, no ear infection(s),no nose bleeds. Cardiovascular: normal blood pressure, no [...] no anemia, no blood clots, no transfusions. Allergy/Immunologic: no swollen lymph nodes/glands, no IV drug [...] Date Status influenza virus vaccine, inactivated 03/11/2019 RecordedWVUMedicine Barnesville HospitalComment on above:Result Comment: Electronically Signed By: AIMEE FIGUEROA, Lj Thompson\Date and Time Signed: 03/14/20 17:25 EDTPre-Certification Form on 66-06-6983Prz-Certification Form [id number]#1.00CD:127WVUMedicine Barnesville HospitalAmbulatory Clinical Summaryon 11-45-5824Nyjpunseap Clinical Summary {z3-rl-1t-lm-18-ab-95-07-m9-40-d5-75-fd-25-60-47}CD:626160HisyswWnapmbWVUMedicine Barnesville HospitalGeneral Surgery Office/Clinic Noteon 74-28-8010Njqoarz Surgery Office/Clinic NoteChief Complaint post operative follow up HPI Staff [...] swallowing difficulties, no hearing loss, no ear infection(s),no nose bleeds. Cardiovascular: normal blood pressure, no [...] no anemia, no blood clots, no transfusions. Allergy/Immunologic: no swollen lymph nodes/glands, no IV drug [...] Date Status influenza virus vaccine, inactivated 03/11/2019 RecordedNoSalem City HospitalComment on above:Result Comment: Electronically Signed By: AIMEE FIGUEROA, Lj Thompson\Date and Time Signed: 02/23/20 14:25 EDTAmbulatory Clinical Summaryon 86-62-5831Tuuhrujffz Clinical Summary {6s-1u-k5-97-35-oy-6a-u6-4a-h6-d8-m5-de-f6-90-e3}CD:200281KowjixSuyxhbWVUMedicine Barnesville HospitalAmbulatory Clinical Summary {3v-69-gr-60-j0-07-06-nl-32-22-q1-5i-16-43-8f-58}CD:[id number]e Barnesville HospitalGeneral Surgery Office/Clinic Noteon 70-81-6030Foqwnzz Surgery Office/Clinic NoteChief Complaint post operative follow up HPI Staff 9 day post operative follow up post colostomy reversal. History of Present Illness 9 days s/p colostomy reversal; doing well, appetite improving, no N/V; no abdominal pain, mild incisional soreness, only taking ibuprofen; frequent loose stools, none at night; no fevers, no drainagefrom incisions. wearing abdominal binder. Review of Systems PHQ Score Initial Depression Screen Score: 0 ROS - Provider Constitutional: no fever, no sweats, no weight loss. Eyes: no glasses, no blurred vision, no visual loss. ENMT: no dentures, no hoarseness, no swallowing difficulties, no hearing loss, no ear infection(s),no nose bleeds. Cardiovascular: normal blood pressure, no [...] no anemia, no blood clots, no transfusions. Allergy/Immunologic: no swollen lymph nodes/glands, no IV drug [...] reversal, # 6 tab(s), Refills(s) 0, [facility] [place] [facility], 167.6, cm, 01/18/20 13:08:00 EDT, Height/Length Dosing, [...] Date Status influenza virus vaccine, inactivated 03/11/2019 RecordedWVUMedicine Barnesville HospitalComment on above:Result Comment: Electronically Signed By: AIMEE FIGUEROA, Lj Thompson\Date and Time Signed: 02/18/20 17:52 EDTPathology Noteon 22-95-6605Tsnhoygix [id number]#1.00CD:[address] [place], [place] [address]Lab Reportson 15-78-4727Rmq Reports [id number]#1.00CD:[address] [place], [place] [address]Operative Reporton 26-88-3590Daukijxdp Report [id number]#1.00CD:[address] [place], [place] [address]Outside Colonoscopyon 00-67-8900Apaumyz Colonoscopy [id number]#1.00CD:[address] [place], [place] [address]Outside Colonoscopyon 22-63-3117Ggyraut Colonoscopy [id number]#1.00CD:[address] [place], [place] [address]Formson 77-4[id number]#1.00CD:[address] [place], [place] [address]Consenton 29-83-0367Ztqawok [id number]#1.00CD:[address] [place], [place] [address]Ambulatory Clinical Summaryon 26-66-0695Npshcyrahu Clinical Summary {18-47-wm-2h-b0-y4-66-x8-r3-y6-0t-0k-e4-c8-e6-9a}:[id number] [facility]/Clinic Noteon 39-55-6266Yegqrop Surgery Office/Clinic NoteChief Complaint discuss colostomy takedown HPI Staff Presents to discuss colostomy takedown. 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 Doing well. Incisional hernia unchanged since last visit; wearing abdominal binder. Bowels moving well; no issue with constipation. Denies abdominal pain, nausea or vomiting. Some mildirritation above stoma site. History of Present Illness [...] outpatient, then colostomy reversal the following day, patientto stay on clear liquids rest of day after colonoscopy and take oral antibiotics; then NPO after midnight; informed consent obtained. patient understands the risks associated with COVID-19, and the need for preoperative testing with self-isolation until the procedure. signs/symptoms of incarceration/strangulation of hernia explained in detail, and patient understands that he should seek prompt medical evaluation if they were to occur. neomycin and erythromycin base, 1 gm each at 13;00, 17;00 and 21:00 day prior to colostomy reversal, Unasyn 3 gms IV prior to OR Ejkyoee85 mg sq 2 hours prior to colostomy [...] Date Status influenza virus vaccine, inactivated [facility]11/2019 [facility]Result Comment: Electronically Signed By: Lj PERES MD\Date and Time Signed: 01/18/20 14:06 EDTPatient Educationon 32-12-2902Bnxcjyk EducationEnd Colostomy Reversal Care After Refer to this [...] directed by your caregiver. ? Only take zqjz-ble-wmscsbm or prescription medicines for pain, discomfort, or [...] Document Reviewed: 08/10/2012 ExitCare? Patient Information ?2013 [employer]. End Colostomy Reversal An end colostomy reversal is surgery that reverses an end colostomy. The large intestine is disconnected from the opening in the abdomen (stoma ). It is then reconnected to the large intestine insidethe body. A stoma and pouch are no longer needed. Bowel movements can resume through the rectum. LET YOUR CAREGIVER KNOW ABOUT: ? Allergies to food or medicine. ? Medicines taken, including vitamins, health supplements, herbs, eyedrops, qaey-ctd-tbrvyvr medicines, and creams. ? Use of steroids [...] anesthetic ). The procedure may be done asopen surgery, with a large incision. It may [...] should arrange for so (more content not included)...[facility] Encounters Encounter DateEncounter TypeCare ProviderFacilityStart: 08-30-2024 End: 24-65-2505Kyofmwrim Result EncounterGeneric External Data ProviderNOMS External Department UnsolicitedStart: 08-30-2024 End: 60-57-6326Ltqdnemyu Result EncounterGeneric External Data ProviderNOMS External Department UnsolicitedStart: 08-02-2024 End: 80-19-1216Bbdqxmsma Result EncounterGeneric External Data ProviderNOMS External Department UnsolicitedStart: 08-02-2024 End: 86-33-2781Eiejsjwyh Result EncounterGeneric External Data ProviderNOMS External Department UnsolicitedStart: 00-65-9138Zphshtzed for general adult medical examination without abnormal findingsDR UVALDO CONTRERASWooster Community Hospital HospitalStart: 01-07-2022 End: 20-42-1231skvlyisnxoJX MARC A NADERERFacility:F6Wjsec: 01-07-2022 End: 15-91-7158Gwbsdcmzx for general adult medical examination without abnormal findingsDR UVALDO NICHOLSacility:H1 Procedures DateProcedureProcedure DetailPerforming ClinicianStart: 32-73-8726Bhhal scapula completeGeneric External Data ProviderStart: 02-81-7851Fpzsj scapula complete Generic External Data ProviderStart: 37-67-6774BBA screeningDR UVALDO KENYON Comment on above:Performed By: #### PSASC #### [facility] [address] [address] [address] Uday Snowden Payers DatePayer CategoryPayerPolicy [id number] Social History DateTypeDetailFacilityTobacco smoking status NHISTobacco smoking consumption unknownNODE HealthcareStart: 96-54-8131Ayc assigned at birthNot on fileNOMS HealthcareGender identityNot on fileNODE Healthcare Summary Purpose Family History No Family History Records FoundNo Family History Records Found Advance Directives No Advanced Directives Records FoundNo Advanced Directives Records Found Additional Source Comments (unrecognized sect ion and content) No Status Records FoundNo Status Records Found INFORMATION SOURCE (unrecogn ized section and content) DATE CREATED AUTHOR 10/26/2020 [facility] DATE CREATED AUTHOR AUTHOR'S ORGANIZ ATION 01/09/2022 [facility] FOR RECORDS PERTAINING TO PATIENTS WHO [...] BE BASED ON THE PRIMARY CLINICAL RECORDS. [employer] provides no warranty or guarantee of the accuracy or completeness of information in this document.
[2025-04-26 08:48] LABS: Alanine Aminotransferase 18 U/L (16-63); Albumin Globulin Ratio 0.9; Albumin Level 3.6 g/dL (3.4-5.0); Alkaline Phosphatase 78 U/L (46-116); Aspartate Amino Transferase 18 U/L (15-37); Cholesterol 224 mg/dL (<=200); Globulin 4.0 g/dL; HDL Cholesterol 47 mg/dL (40-60); Total Protein 7.6 g/dL (6.4-8.2); Triglycerides 115 mg/dL (<=150); VLDL CHOLESTEROL 23.0 mg/dL
== END 2025-04-26 07:37 | disposition home or self-care (01) ==
LOC: LAB 07:40
PROVIDERS: PCP Family Medicine; Visit Provider Family Medicine
DX: E78.00 Pure hypercholesterolemia, unspecified (principal)
CPT/HCPCS: 36415; 80061; 80076